=== PATIENT | male | born 1960 | race African-American/Black ===

== ENCOUNTER 2016-09-17 11:43 | Inpatient (IN) ==
[2016-09-17] MEDS ORDERED: DILTIAZEM 50 MG/10 ML VIAL IV STA ×2 (12:24→13:20)
[2016-09-17] MEDS ORDERED: DILTIAZEM 50 MG/10 ML VIAL IV ONE ×2 (12:31→14:35)
[2016-09-17 12:32] LABS: Basophils % 0.1 % (0.0-0.8); Hematocrit 34.4 VOL% (42.0-52.0); Hemoglobin 11.1 GM/DL (14.0-18.0); Immature Granulocytes % 1.2 %; Immature Granulocytes Absolute 0.12 #; Lymphocytes # 0.7 10*3/uL (1.4-4.0); Lymphocytes % 7.3 % (21.2-54.2); Mean Corpuscular HGB Conc 32.3 GM/DL (32-36); Mean Corpuscular Hemoglobin 27 PG (27-34); Mean Corpuscular Volume 84.3 FL (87-102); Mean Platelet Volume 10.3 FL (9.6-12.0); Monocytes # 0.6 10*3/uL (0.11-0.8); Monocytes % 6.5 % (1.7-12.7); NRBC # 0.02 10*3/uL; Neutrophils # 8.4 10*3/uL (1.4-7.4); Neutrophils % 84.9 % (38.7-73.9); Platelet Count 148 T/CUMM (130-400); Red Blood Count 4.08 MC/CUMM (3.8-5.5); Red Cell Distribution Width 17.3 % (9.3-17.3); White Blood Count 9.9 T/CUMM (4-12)
[2016-09-17] MEDS ORDERED: SODIUM CHLORIDE 0.9% 1,000 ML IV STA ×2 (12:36→13:19)
[2016-09-17] MEDS ORDERED: ACETAMINOPHEN 325 MG TABLET PO ONE (12:59)
[2016-09-17] MEDS ORDERED: ASPIRIN CHEW 81 MG TABLET PO STA (13:00)
[2016-09-17] MEDS ORDERED: ACETAMINOPHEN 325 MG TABLET ONE (13:01)
[2016-09-17] MEDS ORDERED: ASPIRIN 325 MG TABLET ONE (13:02)
[2016-09-17 13:13] LABS: Albumin 3.3 G/DL (3.4-5.0); Bilirubin,Total 1.2 MG/DL (0.2-1.0); Calcium 8.6 MG/DL (8.5-10.1); Osmolality,Calculated 276.8 MOS/KG (273-304); Total Protein 7.6 G/DL (6.4-8.3)
[2016-09-17 13:20] LABS: Troponin I Only 0.114 NG/ML (0.00-0.045)
[2016-09-17] MEDS ORDERED: ENOXAPARIN 120 MG/0.8 ML SYRINGE SUBCUT STA (13:24)
[2016-09-17] MEDS ORDERED: POTASSIUM CHLORIDE 20 MEQ TABLET PO STA (13:29)
--- NOTE | 2016-09-17 13:31 | Ultrasound Report ---
Exam: Right lower extremity venous Doppler/duplex ultrasound Comparison: None Clinical history: Right leg pain and swelling Technique: Duplex scan of the right lower extremity veins using th B- mode/grayscale imaging and Dopplers spectral analysis and color flow. Findings: There is normal compression and augmentation of the right common femoral, superficial femoral and popliteal veins. The proximal right greater saphenous veins appear to be patent. Major venous structures of the right lower extremity demonstrating normal course and caliber with normal color-flow study and spectral analysis. Impression: No evidence to suggest deep venous thrombosis within the right lower extremity. Enlarged 51 mm right groin node. Ultrasound images were captured and stored. PROCEDURE INTERPRETED AT [facility] ([facility] DEPARTMENT OF RADIOLOGY Final Report Signed by: Dr. Sarah Curran
--- NOTE | 2016-09-17 14:15 | Hospitalist History & Physical ---
<Louis Stricklandric - Last Filed: 09/17/16 14:07> Assessment and Plan - Time spent with patient Time spent with patient: Greater than 30 minutes History of Present Illness Chief complaint: SOB History of present illness: Mr. Morton is a 56 year old male with a history of hypertension and alcohol use who presented to the ED via EMS from [facility] in [place] for further evaluation of elevated cardiac enzymes and shortness of breath. On exam, the patient is noticeably uncomfortable, diaphoretic with rapid shallow breathing. The patient reports shortness of breath that has been progressively worsening over the last week, becoming unbearable on last night. The patient is a poor historian and doesn't seem to know very much about his own medical history. Most of the history has been collected from his mother who is at bedside, medical records, and preliminary diagnostic tests. He denies headache, chest pain, pain on inspiration, abdominal pain, N/V. He admits to drinking 1/5 of liquor "on the weekends" but denies smoking. EKG shows atrial fib/flutter with RVR and evidence of an old infact. Labs reveal WBC 9.9, Hgb 11.1, Hct 34.4, K 3.0, BUN 24, Cr 2.4, Trop 0.114. D-Dimer is negative. He is a full code. The patient will be admitted to the hospital medicine service for further evaluation and treatment. Home Medications Medication Instructions Recorded Confirmed Type Aspirin [Aspirin EC] 81 mg PO DAILY 09/17/16 09/17/16 History Lisinopril/Hctz 20-25 [Prinzide 1 tablet PO DAILY 09/17/16 09/17/16 History 20-25] Allergies Allergy/AdvReac Type Severity Reaction Status Date / Time No Known Allergies Allergy Unverified 09/17/16 11:51 Medical,Surgical,& Family Hx - Medical History Cardio: History of: Hypertension - Social History Smoking Status: Never smoker Frequency of Alcohol Use: Frequently Type of Drug Use: None Marital Status: Single Lives With:: Alone Functional capacity: independent ambulation - Constitutional Constitutional: Present: fatigue, weakness. Absent: excessive sweating - EENT Eyes: Absent: blurry vision, loss of vision - Cardiovascular Cardiovascular: Present: dyspnea, dyspnea on exertion - Respiratory Respiratory: Present: dyspnea. Absent: cough - Gastrointestinal Gastrointestinal: Absent: abdominal pain - Genitourinary Genitourinary: Absent: difficulty urinating, dysuria - Musculoskeletal Musculoskeletal: Absent: arthralgias, back pain - Neurological Neurological: Absent: abnormal gait, abnormal speech - Psychiatric Psychiatric: Absent: anxiety, depression - Endocrine Endocrine: Absent: cold intolerance, fatigue, heat intolerance - Hematologic/Lymphatic Hematologic/Lymphatic: Absent: easy bleeding, easy bruising Exam - Constitutional Exam: General appearance: morbid obesity, moderate distress, diaphoretic - Head Head exam: Present: normocephalic, atraumatic - Eye Eye exam: Present: EOMI. Absent: conjunctival injection, nystagmus Pupils: Present: VIKASH, normal accommodation - ENT ENT exam: Present: normal exam, normal external ear exam - Neck Neck exam: Present: normal inspection. Absent: lymphadenopathy, tenderness, thyromegaly - Respiratory Respiratory exam: Present: clear to auscultation bilaterally. Absent: rales, rhonchi, wheezes - Cardiovascular Cardiovascular exam: Present: irregular, tachycardia. Absent: carotid bruit, gallop, rubs - GI/Abdominal GI/Abdominal exam: Present: normal bowel sounds. Absent: ascites, distended, mass - Extremities Exam Extremities exam: Present: edema, venous stasis. - Back Exam Back exam: Absent: CVA tenderness (L), CVA tenderness (R) - Neurological Exam Neurological exam: Present: alert, oriented X3 - Psychiatric Psychiatric exam: Present: normal affect, normal mood - Skin Skin exam: Present: normal color, warm, moist Results - Labs CBC & BMP: 09/17/16 12:18 09/17/16 12:18 Lab Results: I have reviewed the past 24 hour labs - EKG EKG results: interpreted by SUNNY EKG shows: atrial fibrillation - Impressions 1. Atrial fibrillation with RVR: Uncontrolled. Patient receiving Cardizem drip in the ER. We will continue to monitor. Consult cardiology as needed 2. Dyspnea: Rapid shallow breathing on exam. Decreased lung sounds. Chest x- ray reveals improving CHF with residual small pleural effusion. Minimal atelectasis at lung bases. Continue O2 per nasal cannula. Lasix. Consider antibiotics for possible pneumonia coverage. 3. Acute renal failure: BUN 24 creatinine 2.4. Patient apparently takes lisinopril. Gentle IV fluids. Consult nephrology as necessary. - Diagnostic Findings Procedure: Chest x-ray: image reviewed by me, report reviewed by me (improving CH fwith small left pleural effusion. minimal atelectasis) <Susanne Cormier - Last Filed: 09/17/16 15:08> Assessment and Plan - Time spent with patient Time spent with patient: Less than 30 minutes History of Present Illness History of present illness: Mr. Morton is a 56 year old male Results - Labs CBC & BMP: 09/17/16 12:18 09/17/16 12:18
[2016-09-17 14:26] LABS: Band Neutrophils 4 % (0-10); Lymphocytes 5 % (20-55); Segmented Neutrophils 87 % (50-85); Total Cells Counted 100
[2016-09-17] MEDS ORDERED: ONDANSETRON 4 MG/2 ML VIAL IV PRN (14:26)
[2016-09-17] MEDS ORDERED: ACETAMINOPHEN 325 MG TABLET PO PRN (14:26)
[2016-09-17] MEDS ORDERED: DOCUSATE SODIUM 100 MG CAPSULE PO PRN (14:26)
[2016-09-17] MEDS ORDERED: MORPHINE 2 MG/1 ML SYRINGE IV PRN (14:26)
[2016-09-17] MEDS ORDERED: LACTULOSE 20 GM/30 ML UDCUP PO PRN (14:26)
[2016-09-17] MEDS ORDERED: ZALEPLON 5 MG CAPSULE PO PRN (14:26)
[2016-09-17 14:27] LABS: Hypochromasia Slight; Platelet Estimate Adequate
[2016-09-17 14:28] LABS: Poikilocytosis Slight; Tear Drop Cells Few
--- NOTE | 2016-09-17 14:31 | XRay Report ---
Portable chest Date: 09/17/2016 Clinical history: Shortness of breath Comparison: 09/17/2016 Technique: Portable AP sitting chest Findings: The heart is minimally enlarged with uncoiling of the aorta. Decreased perihilar parenchymal findings extending to the lung bases. Small left pleural effusion. Stable mediastinum with degenerative changes. Impression: Improving CHF with residual small left pleural effusion. Minimal atelectasis at the lung bases. PROCEDURE INTERPRETED AT [facility] DEPARTMENT OF RADIOLOGY Final Report Signed by: Dr. Sarah Curran
[2016-09-17] MEDS ORDERED: ENOXAPARIN 120 MG/0.8 ML SYRINGE SUBCUT ONE (14:34)
[2016-09-17] MEDS ORDERED: POTASSIUM CHLORIDE 20 MEQ TABLET PO ONE (14:35)
--- NOTE | 2016-09-17 14:37 | Emergency Department Note ---
Toro Collins Brittany, am scribing for, and in the presence of, Moises Figueroa M.D. 12:28. Henry Collins Howard T, M.D., personally performed the services described in this documentation, ascribed by Ewa Engel in my presence, and it is both accurate and complete 232 . Arrival - Arrival Chief Complaint: Shortness of Breath Stated Complaint: transfer sob ED Nursing Triage Note: sob for one day. transferred from [facility] for further evaluationof elevated cardiac enzymes. Mode of Arrival: Stretcher Limitations: No Limitations Source: Patient, Family, RN Notes Reviewed - History of Present Illness HPI Narrative: Patient is a 56 y/o black male presenting to the ED by EMS from [place], [place] for further evaluation of Elevated Cardiac Enzymes. Patient reports that he has been having some shortness of breath that has been chronic for over a year now, worsening today. Family reports that patient cannot walk even a short distance without getting extremely short of breath. Patient has no history of diagnosis of Pulmonary problems. Patient notes that he has had some severe diarrhea and chills. Family reports that patient never gets chilled and this is unlike him. Family notes that patient has had some swelling of the bilateral lower extremities occurring intermittently for a year, right greater than left. Patient admits to frequent use of ETOH, but denies any use of smoking tobacco. No other complaint/pain in the ED at this time. Allergies/Adverse Reactions: Allergies Allergy/AdvReac Type Severity Reaction Status Date / Time No Known Allergies Allergy Unverified 09/17/16 11:51 Home Medications: Home Medications Medication Instructions Recorded Confirmed Type Aspirin [Aspirin EC] 81 mg PO DAILY 09/17/16 09/17/16 History Lisinopril/Hctz 20-25 [Prinzide 1 tablet PO DAILY 09/17/16 09/17/16 History 20-25] Review of System - Review of System 12 point system: reviewed and no additional remarkable complaints except as stated - Review of System Constitutional: Absent: chills, fever Eyes: Absent: vision change Head/Ears/Nose/Throat: Absent: nasal drainage, sore throat Respiratory: Present: respiratory distress Cardiovascular: Present: edema. Absent: chest pain Gastrointestinal: Present: nausea, diarrhea. Absent: abdominal pain, vomiting Genitourinary male: Absent: urgency, dysuria, frequency Musculoskeletal: Absent: arm pain, back pain, leg pain, neck pain Skin: Absent: rash Neurological: Absent: headache Psychiatric: Absent: anxiety, depression Hematological/Lymphatic: Absent: easy bleeding, easy bruising Medical,Surgical,& Family Hx - Medical History Cardio: History of: Hypertension - Social History Smoking Status: Never smoker Exam Vital Signs: Vital Signs Temperature 101.1 F H 09/17/16 12:15 Pulse Rate 108 H 09/17/16 12:46 Respiratory Rate 20 09/17/16 12:46 Blood Pressure 136/72 09/17/16 12:46 O2 Sat by Pulse Oximetry 97 09/17/16 12:46 - General General appearance: alert, in distress (patient appears to be mildly dyspneic) - Head Head exam: Present: atraumatic, normocephalic, normal inspection - Eye Eye exam: Present: normal appearance, PERRL, EOMI - ENT ENT exam: Present: normal exam, normal oropharynx, mucous membranes moist - Neck Neck exam: Present: normal inspection, full ROM, trachea midline - Chest Chest inspection: Present: normal inspection, symmetric chest wall rise - Respiratory Respiratory exam: Present: respiratory distress (mild respiratory distress), other (dyspneic). Absent: normal lung sounds bilaterally (patient has expiratory sounds) - Cardiovascular Cardiovascular exam: Present: normal rhythm, tachycardia, normal heart sounds. Absent: regular rate - Abdominal Exam Abdominal exam: Present: soft, normal bowel sounds. Absent: distention, tenderness - Extremities Exam Extremities exam: Present: full ROM. Absent: normal inspection (swelling to bilateral lower extremities right greater than left; RLE warm to touch), tenderness - Back Exam Back exam: Present: normal inspection - Neurological Exam Neurological exam: Present: alert, oriented X3, CN II-XII intact. Absent: motor sensory deficit - Psychiatric Psychiatric exam: Present: normal affect - Skin Skin exam: Present: warm, dry Course Course Narrative: Medical decision making: Precise etiology of all signs and symptoms unclear, fever A. fib dyspnea elevated d-dimer, differential includes and STEMI, PE, or unspecified infectious process. Hospice will evaluate for continued testing and treatment. CT chest deferred because elevated creatinine. IV fluids multiple boluses in ER given. Cardizem given, initially responded first dose then rapid ventricular response recurred so additional dose given. Diarrhea and possible dehydration so continued IV fluids. Fever and dyspnea treated Tylenol aspirin. Bilingual Operator briefly reviewed EKGs did not recommend treatment as STEMI. Lovenox given for possible PE or non-STEMI. Results - Labs CBC & BMP: 09/17/16 12:18 09/17/16 12:18 Lab Results: I have reviewed the patients labs Labs: Laboratory Tests 09/17/16 12:18 WBC 9.9 RBC 4.08 Hgb 11.1 L Hct 34.4 L MCV 84.3 L MCH 27 MCHC 32.3 RDW 17.3 Plt Count 148 MPV 10.3 Neut % (Auto) 84.9 H Lymph % (Auto) 7.3 L [place] % (Auto) 6.5 Eos % (Auto) 0.0 Baso % (Auto) 0.1 Neut # (Auto) 8.4 H Lymph # (Auto) 0.7 L [place] # (Auto) 0.6 Eos # (Auto) 0.0 Baso # (Auto) 0.0 Immature Gran % 1.2 Nucleated RBC % 0.2 Immature Gran # 0.12 Nucleated RBCs # 0.02 Laboratory Tests 09/17/16 12:18 D-Dimer, Quantitative 2.2 Laboratory Tests 09/17/16 12:18 Sodium 137 Potassium 3.0 L Chloride 102 Carbon Dioxide 23 Anion Gap 15.0 BUN 24 H Creatinine 2.40 H GFR Calculation 55 BUN/Creatinine Ratio 10.00 Glucose 105 Calculated Osmolality 276.8 Calcium 8.6 Total Bilirubin 1.20 H AST 73 H ALT 31 Alkaline Phosphatase 34 L Troponin I 0.114 H Total Protein 7.6 Albumin 3.3 L Globulin 4.3 H Albumin/Globulin Ratio 0.7 L Amylase 21 L Lipase 70.0 L - EKG EKG results: interpreted by ERMD (afib or flutter, no def STEMI, Rate 140s) - Diagnostic Findings Procedure: Chest x-ray: report reviewed by me (no acute; see report), Ultrasound : report reviewed by me (Venous Doppler: No evidence to suggest deep venous thrombosis within the right lower extremity. Enlarged 51 mm right groin node.) Disposition Clinical Impression: Dyspnea, Fever, Elevated troponin I level, Afib, Atrial fibrillation with RVR Case discussed with: patient Disposition: Disch/Xfer-Ipshort Term Hos Condition: Guarded Time of Disposition: 14:36
[2016-09-17 14:50] LABS: ABG Base Excess -3.5 MMOL/L (-2.5-2.5); ABG HCO3 21.5 MMOL/L (20-26); ABG Oxygen Saturation 97.5 % (95-100); ABG PCO2 26.9 MM HG (35-48); ABG PH 7.461 (7.35-7.45); ABG PO2 95.5 MM HG (80-95); ABG TCO2 17.2 MMOL/L (23-27)
[2016-09-17 14:53] LABS: Risk Ratio 1.77; VLDL CHOLESTEROL 13.4 MG/DL
[2016-09-17 14:54] LABS: Magnesium 1.2 MG/DL (1.8-2.4); Phosphorous 1.5 MG/DL (2.5-4.9)
[2016-09-17] MEDS ORDERED: SODIUM CHLORIDE 0.9% 1,000 ML IV SCH (15:30)
[2016-09-17 15:35] LABS: Free T4 (Free Thyroxine) 1.1 NG/DL (0.76-1.46); Thyroid Stimulating Hormone 1.09 uIU/ml (0.358-3.74)
[2016-09-17] MEDS ORDERED: POTASSIUM CHLORIDE 20 MEQ TABLET PO PRN (17:30)
[2016-09-17] MEDS ORDERED: MAGNESIUM SULF RIDER 4 GM in PREMIX 1 EACH IV PRN (17:31)
[2016-09-17] MEDS ORDERED: MAGNESIUM SULF RIDER 2 GM in PREMIX 1 EACH IV PRN (17:31)
[2016-09-17] MEDS: ENOXAPARIN 30 MG/0.3 ML SYRINGE SUBCUT SCH (17:35)
[2016-09-17] MEDS: DILTIAZEM 30 MG TABLET PO SCH (22:26)
[2016-09-17] MEDS ORDERED: EPINEPHrine 1 MG/ML VIAL ONE (22:39)
[2016-09-17] MEDS ORDERED: CALCIUM CHLORIDE 1,000 MG/10 ML SYRINGE IV ONE (22:39)
[2016-09-17] MEDS ORDERED: AMIODARONE 150 MG/3 ML VIAL ONE (22:39)
[2016-09-17] MEDS ORDERED: SODIUM BICARBONATE 50 MEQ/50 ML VIAL IV ONE (22:39)
[2016-09-17] MEDS ORDERED: MAGNESIUM SULFATE 1 GM/2 ML VIAL ONE (22:39)
[2016-09-18] MEDS ORDERED: DILTIAZEM 30 MG TABLET PO SCH (09:00)
--- NOTE | 2016-09-18 09:07 | Hospitalist Progress Note ---
Assessment and Plan (1) Atrial fibrillation with RVR Status: Acute Assessment and plan: Impression: 1. Atrial fibrillation with rapid ventricular rate and elevated troponin. 2. Possible acute kidney injury. 3. Hypertension 4. Diarrhea and fever Plan: Cardiology consultation was mentioned in the note from yesterday, so I will ask them for their opinion. Continue volume resuscitation. Resume diltiazem for rate and blood pressure control. Follow kidney function. Stool studies. This note was completed using [facility] voice recognition software. There may be manager transfusion errors as a result. Current Visit: Yes Hospitalist: Subjective Interval history: The patient was referred from an outside hospital yesterday for evaluation of tachycardia. His only complaint at the time of transfer was diarrhea for about 24 hours and some chills. He reported 8 or 10 loose stools over the prior 24 hours. He has no history of any antibiotic use for the past month or so, but apparently did have an upper respiratory infection about 2 weeks ago. He denies taking any antibiotics for that. When he presented to his local hospital for evaluation of the diarrhea and chills, he was found to be tachycardic and had an elevated troponin. He was referred for evaluation of that. EKG here showed what appears to be atrial fibrillation with a ventricular rate of about 140. The patient reports a history of hypertension, but denies any prior history of heart disease. He specifically reports no history of myocardial infarction or congestive heart failure. He also reports no prior history of kidney disease or diabetes. He was given some diltiazem with initial good rate control, but this is currently not hanging. Alcohol history as noted in the history and physical. He denies any smoking. Exam - Constitutional Vitals: Period Temp Pulse Resp BP Sys/Carbone Pulse Ox Last 24 Hr 97 F-100.9 F 104-135 20-27 102-163/58-110 96-100 He is a morbidly obese black man. He is sitting in a chair at the bedside. Heart appears regular and rapid, with distant tones and no murmur. He has a few scattered rales in the chest, but the lungs are mostly clear. Abdomen is obese and soft. There is no tenderness. He has no significant peripheral edema. Results - Labs CBC & BMP: 09/17/16 12:18 09/17/16 12:18 Lab Results: I have reviewed the past 24 hour labs (Creatinine is elevated. EKG as described above.)
[2016-09-18] MEDS: DILTIAZEM 30 MG TABLET PO SCH (09:17)
[2016-09-18] MEDS: PANTOPRAZOLE 40 MG TABLET PO SCH (09:17)
[2016-09-18] MEDS ORDERED: DILTIAZEM 100 MG VIAL.ADD IV ONE (10:20)
[2016-09-18] MEDS ORDERED: DILTIAZEM INJ 100 MG in SODIUM CHLORIDE 0.9% 100 ML IV SCH (10:30)
--- NOTE | 2016-09-18 10:31 | EKG Report ---
Stationary ECG Study [facility] Test Date: 09/18/2016 10:31:30 AM Pat Name: ELMO BEE Department: Room: 281 Gender: M Front Desk Specialist: SMILEY : 1960 Requested by: Lisa Tello Order Number: [id number] Reading MD: TU MURO Intervals [place] Rate: 134 P: 999 MI: 0 QRS: 257 QRSD: 119 T: 94 QT: 295 QTc: 374 Interpretive Statements ATRIAL FLUTTER/TACHYCARDIA WITH RAPID VENTRICULAR RESPONSE POSSIBLE RIGHT VENTRICULAR HYPERTROPHY INFERIOR MYOCARDIAL INFARCTION, PROBABLY OLD ANTEROLATERAL MYOCARDIAL INFARCTION, OF INDETERMINATE AGE Electronically Signed On 09-20-16 12:41:35 CDT by TU MURO [email or web address]
[2016-09-18] MEDS ORDERED: SODIUM CHLORIDE 0.9% IV SCH (11:00)
[2016-09-18] MEDS ORDERED: DILTIAZEM IV SCH (11:00)
[2016-09-18] MEDS ORDERED: DILTIAZEM INJ 125 MG in SODIUM CHLORIDE 0.9% 100 ML IV SCH (11:00)
[2016-09-18] MEDS ORDERED: DILTIAZEM 25 MG/5 ML VIAL IV ONE (11:30)
[2016-09-18] MEDS ORDERED: POTASSIUM CHLORIDE RIDER 10 MEQ in PREMIX 1 EACH IV PRN (11:37)
--- NOTE | 2016-09-18 12:00 | Cardiology Consult Note ---
<Linnea Guzmán - Last Filed: 09/18/16 14:34> Assessment and Plan - Time spent with patient Time spent with patient: Greater than 30 minutes (1) Atrial flutter Status: Acute Assessment and plan: Atrial flutter with rapid ventricular response. This appears to be a new diagnosis. -Continue Cardizem drip -Add Coreg 6.25 mg p.o. twice daily -Will consider adding Eliquis for stroke prevention. Current Visit: Yes (2) Elevated troponin I level Status: Acute Assessment and plan: This is most likely secondary to patient's atrial flutter with rapid ventricular response. This is also in the setting of an elevated creatinine of 2.4. Patient denies chest pain, heaviness and tightness. We will continue to monitor cardiac biomarkers and EKG. Underlying coronary artery disease also needs to be ruled out. Patient will need left heart catheterization once dyspnea and rapid heart rate improves. Current Visit: Yes (3) Dyspnea on exertion Status: Acute Assessment and plan: Likely secondary to heart failure. BNP is mildly elevated at 275. Underlying coronary artery disease also need to be ruled out. Patient will need left heart catheterization once dyspnea and rapid heart rate improves. -Echocardiogram -Lasix 40 mg IV twice daily. Monitor BMP daily. Current Visit: Yes (4) Orthopnea Status: Chronic Assessment and plan: Patient confirms orthopnea 4-5 years. I have ordered Lasix 40 mg twice daily. I have also added echocardiogram. Current Visit: Yes (5) Hypertension Status: Chronic Assessment and plan: This is suboptimally controlled. Coreg 6.25 mg p.o. twice daily added. We will continue to adjust medications as needed. 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 Morton is a 56 year old male without known history of coronary artery disease, not routinely followed by cardiology. Patient was transferred to [facility] for further evaluation of elevated troponin. Patient has cardiac risk factors significant for hypertension, obesity, sedentary lifestyle and former smoker (quit 3 years ago). Patient denies history of diabetes, hyperlipidemia and atrial fibrillation/flutter. Patient denies any prior history of cardiac workup. He has never undergone heart catheterization or cardiac stress testing. Patient was transferred from [facility] in [facility] for elevated troponin, 0.06. When he arrived to [facility] he was noted to be in atrial flutter with rapid ventricular response. Heart rate of 142 noted. This appears to be a new onset. Patient denies any prior history of an irregular heart rhythm. Patient confirms shortness of breath since Sunday. He tells me that this progressively worsened and yesterday he decided it was time to have this worked up further. Patient also confirms orthopnea 4-5 years (reports that he sleeps on multiple pillows at night), lower extremity swelling, dyspnea on exertion and easy fatigability. Patient's mother is at bedside and she reports that he has very poor exercise intolerance. He can only walk very short distances without having to stop for rest break. He denies chest pain, heaviness and tightness. He also denies heart palpitations and heart racing. He reports that he cannot tell that he is in an irregular heart rhythm. He is currently on Cardizem drip. Patient has been admitted under the hospitalist's service and housed on the telemetry floor. Cardiology has been consulted to further assist in patient's atrial flutter. Patient was seen and examined on the telemetry floor. Patient denies chest pain , heaviness and tightness. He remains in atrial flutter, heart rate is trending down after initiation of Cardizem drip. He continues to be dyspneic and tachypneic and in mild respiratory distress. Troponin remains slightly elevated (0.114, 0.407 and 0.519). However, this is in the setting of an elevated creatinine of 2.4. D-dimer is also been elevated at 2.2. VQ lung scan has been ordered. Venous Doppler of bilateral lower extremity was negative for DVT. Chest x-ray reveals minimally enlarged heart with small left pleural effusion. Patient reports that he has no prior history of heart failure. I have ordered an echocardiogram. BNP is mildly elevated at 275. I will add Lasix at this time. Patient patient remains in atrial flutter with heart rate of 23 noted. TSH is noted to be in normal limits. Potassium is 3.0 this is been replaced per protocol. Magnesium 1.2, this is also been replaced per protocol. We will continue with Cardizem drip at this time. Patient will most likely need further invasive workup during his hospital stay. He will most likely benefit from left heart catheterization to rule out underlying coronary artery disease. This can be done once patient's dyspnea and rapid heart rate resolved. I will discuss this further with Dr. Ludwig. Further plan and addendum to follow per Dr. Ludwig. CC: Derrick Branch MD - Home Medications and Allergies Home Medications: Home Medications Medication Instructions Recorded Confirmed Type Aspirin [Aspirin EC] 81 mg PO DAILY 09/17/16 09/17/16 History Lisinopril/Hctz 20-25 [Prinzide 1 tablet PO DAILY 09/17/16 09/17/16 History 20-25] Allergies/Adverse Reactions: Allergies Allergy/AdvReac Type Severity Reaction Status Date / Time No Known Allergies Allergy Unverified 09/17/16 11:51 - Constitutional Constitutional: Present: daytime sleepiness, fatigue, weight gain. Absent: chills, excessive sweating, fever(s), frequent falls, headache(s), weakness, weight loss - Cardiovascular Cardiovascular: Present: dyspnea, dyspnea on exertion, edema, orthopnea, PND. Absent: chest pain at rest, chest pain with activity, claudication, diaphoresis , radiating jaw, neck or arm pain, lightheadedness, palpitations - Respiratory Respiratory: Present: dyspnea, dyspnea on exertion, wheezing, snoring. Absent: cough, pain on inspiration, change in phlegm color - Gastrointestinal Gastrointestinal: Absent: abdominal pain, change in bowel habits, coffee ground emesis, constipation, cramping, diarrhea, heartburn, hematemesis, hematochezia, loose stools, nausea, vomiting - Neurological Neurological: Absent: dizziness, syncope - Hematologic/Lymphatic Hematologic/Lymphatic: Absent: easy bleeding, easy bruising, lymphadenopathy Medical,Surgical,& Family Hx - Medical History Cardio: History of: Hypertension No history of: CAD Endocrine: No history of: Diabetes Mellitus (IDDM), Diabetes Mellitus (NIDDM), Dyslipidemia Other: History of: Miscellaneous Medical Problems (Obesity) - Surgical History Cardiac Surgeries: Patient Denies: Cardiac Catheterization - Family History Family History: Denies;: Family Heart Disease - Social History Smoking Status: Former smoker (Quit 3 years ago) Frequency of Alcohol Use: Frequently Type of Drug Use: None Physical Examination Vital Signs Pulse Resp BP Pulse Ox 96 H 32 H 116/74 96 09/17/16 11:43 09/17/16 11:43 09/17/16 11:43 09/17/16 11:43 General: Present: Appears Well, No Apparent Distress HEENT: Present: Normocephaly Neck: Present: Supple Neck, Midline Trachea Cardiac: Present: Irregularly Regular, Tachycardia. Absent: Gallop Lungs: Present: Bibasilar Rales (Minimal), Oxygen, Other (Tachypnea and dyspneic ) Abdomen: Present: Soft, Active Bowel Sounds, Non-Tender, Other (Obese) Skin: Present: Other (Dry skin to bilateral lower extremities) Extremities: Present: No Clubbing, No Cyanosis, No Edema, Normal Upper Extr. Pulses, Normal Lower Extr. Pulses Result/EKG - Labs CBC & BMP: 09/17/16 12:18 09/17/16 12:18 Lab Results: I have reviewed the past 24 hour labs Labs: Laboratory Results - last 24 hr 09/17/16 09/17/16 09/17/16 14:29 15:16 21:28 ABG pH 7.461 H ABG pCO2 26.9 L ABG pO2 95.5 H ABG HCO3 21.5 ABG Total CO2 17.2 L ABG O2 Saturation 97.5 ABG Base Excess -3.5 L Lactic Acid 3.9 H Troponin I 0.407 H D 09/18/16 00:51 ABG pH ABG pCO2 ABG pO2 ABG HCO3 ABG Total CO2 ABG O2 Saturation ABG Base Excess Lactic Acid Troponin I 0.519 H D <Maxwell Ludwig - Last Filed: 09/18/16 16:29> History of Present Illness - Consult Narrative History of present illness: Patient's chart reviewed, the patient himself was interviewed and examined. Discussed the case and chart with Linnea Guzmán NP. Mr. Morton is a 56 year old male who states she's been having edema for over a year but not evaluated. He's had no ECGs in quite some time. As noted he was transferred here with atrial flutter with rapid ventricular response. He initially slowed with some medications but still fast. He has not noted any palpitations. His biggest complaint was that of shortness of breath. He denies any chest pain or angina or anginal equivalent. His troponin was minimally elevated and his BNP was mildly moderately elevated at 275. His chest x-ray acid looks normal. His creatinine is slightly elevated at 2.4 BUN of 24 and. His potassium 3.0. Magnesium is 1.2. The patient on protocol replacements. His VQ lung scan was normal with low probability for pulmonary emboli. His echocardiogram is pending. Patient examined and his examination is as noted. I think at this time we will add amiodarone to his regimen IV and await his echocardiogram. Certainly he may need SHANTI and cardioversion. It does appear though he was in sinus tachycardia on arrival to the outside facility. CC: Derrick Branch MD Physical Examination Vital Signs Pulse Resp BP Pulse Ox 96 H 32 H 116/74 96 09/17/16 11:43 09/17/16 11:43 09/17/16 11:43 09/17/16 11:43 Result/EKG - Labs CBC & BMP: 09/17/16 12:18 09/17/16 12:18 Labs: Laboratory Results - last 24 hr 09/17/16 09/18/16 21:28 00:51 Troponin I 0.407 H D 0.519 H D
--- NOTE | 2016-09-18 14:21 | Nuclear Medicine Report ---
Nuclear medicine ventilation/perfusion scan Indication: Shortness of breath Findings: Ventilation scan: The patient received 40.0 mCi of 90 9M technetium DTPA aerosolized. There is normal distribution of radiotracer in both lungs. Perfusion scan: Patient received 5.0 mCi of 90 9M technetium MAA intravenously. There is normal in distribution of radiotracer in both lungs without evidence of segmental or greater defects. Impression: Normal nuclear medicine ventilation perfusion scan. This indicates low probability for pulmonary embolism. PROCEDURE INTERPRETED AT [facility] DEPARTMENT OF RADIOLOGY Final Report Signed by: Dr. David Duckworth
--- NOTE | 2016-09-18 14:37 | XRay Report ---
XR chest post lung scan Indication: Shortness of breath Comparison: 17 September 2016 Findings: The heart and mediastinum are normal in size and configuration. The pulmonary vascularity is normal in caliber. No lung infiltrates, effusions, pneumothorax or other abnormality is demonstrated. Impression: Normal chest x-ray PROCEDURE INTERPRETED AT [facility] DEPARTMENT OF RADIOLOGY Final Report Signed by: Dr. David Duckworth
[2016-09-18] MEDS: ENOXAPARIN 30 MG/0.3 ML SYRINGE SUBCUT SCH (14:42)
[2016-09-18] MEDS: CARVEDILOL 6.25 MG TABLET PO SCH ×2 (14:42→21:56)
[2016-09-18] MEDS: FUROSEMIDE 40 MG/4 ML VIAL IV SCH (16:43)
[2016-09-18] MEDS ORDERED: AMIODARONE INJ 150 MG in DEXTROSE 5% 100 ML IV ONE (17:00)
[2016-09-18] MEDS ORDERED: AMIODARONE INJ 450 MG in DEXTROSE 5% 241 ML IV SCH ×2 (17:00→23:00)
[2016-09-18 19:11] LABS: Apearance,Urine CLOUDY (Clear); Bacteria,Urine Few /HPF (Few); Bilirubin,Urine Negative (Negative); Blood, Urine Large mg/dL (Negative); Glucose,Urine (UA) Negative (Negative); Ketones,Urine 5 mg/dL (Negative); Nitrite,Urine Negative (Negative); Protein,Urine 100 MG/DL; RBC,Urine 13 /HPF (0-4); Squamous Epithelial Cell,Urine Occasional /HPF (0-10); Urine Color Red (Yellow); Urine Specific Gravity 1.016 (1.001-1.035); Urine Urobilinogen < 2.0 EU/DL (0.2-1.0); WBC,Urine 33 /HPF (0-6)
--- NOTE | 2016-09-18 21:07 | ECHO Report ---
Praveen, Yusuf Exam Date: 09/18/2016 10:52 Referring Physician: Technologist: Diane Abel Age: 56 Ht (in): 76 Wt (lb): 360 Gender: M Exam Location: [facility] Echo Indications: dyspnea, fever, elevated troponin, A fib BP: 163 / 92 HR: 133 Rhythm: tachycardia Technical Quality: Very technically difficult study IMPRESSIONS 1. The patient is severely tachycardic and the patient's visualization so poor that I cannot really make an adequate interpretational report on this study. 2. The left ventricle at best appears to be normal size the upper limits normal size. It is difficult to make any accurate determination of ejection fraction. 3. The right ventricle appears to be normal size. 4. Otherwise I can make no further comment on this study because of his poor quality and limited visualization. MEASUREMENTS (Male / Female) Normal Values 2D ECHO LV Diastolic Diameter PLAX 4.2 cm 4.2 - 5.9 / 3.9 - 5.3 cm LV Systolic Diameter PLAX 3.1 cm LV Fractional Shortening PLAX 26.2 % IVS Diastolic Thickness 2.5 cm 0.6 - 1.0 / 0.6 - 0.9 cm LVPW Diastolic Thickness 1.6 cm 0.6 - 1.0 / 0.6 - 0.9 cm RV Internal Dim ED PLAX 2.6 cm Aortic Root Diameter 3.1 cm LA Systolic Diameter LX 4.5 cm 3.0 - 4.0 / 2.7 - 3.8 cm DOPPLER TR Peak Velocity 147.0 cm/s TR Peak Gradient 8.6 mmHg FINDINGS Left Ventricle See above. Right Ventricle Normal right ventricular size. Right Atrium Not actively visualized. Left Atrium Not adequately visualized. Mitral Valve Not adequately seen due tocomment on Aortic Valve Not adequately seen to comment on Tricuspid Valve Not adequately visualized to comment on. Pulmonic Valve Pulmonic valve not well visualized. Pericardium No pericardial effusion. Aorta Normal size aortic root and proximal ascending aorta. Maxwell Ludwig MD (Electronically Signed) Final Date: 18 September 2016 21:06
--- NOTE | 2016-09-18 23:25 | Event Note ---
Patient coded: ACLS was initiated even for that there. Reportedly this patient admitted to the hospital for the atrial fib with RVR. Was going on oral Cardizem throughout the day of informed. The patient obviously went into asystole and subsequently developed a ventricular fibrillation. Opiate intervention was done patient was able to be brought back to spontaneous heartbeat with atrial fibrillation rate below 100 is refer to the full report of the ACLS. That intubated in the process is now on CMV rate of 12 tidal volume of 700 and 100% blood gas is pending. All labs have been sent. Please refer to the orders initiated tonight on this patient for the workup details. Concerns include: 1. pulmonary embolus 2. Myocardial infarction 3. Electrolyte abnormalities 4. Miscellaneous because of Patient is now in need intensive care unit room #119 I will respond and act on the outcome of the lab test done.
[2016-09-18] MEDS ORDERED: ATROPINE 1 MG/10 ML SYRINGE IV ONE (23:28)
[2016-09-18] MEDS ORDERED: SODIUM CHLORIDE 0.9% 1,000 ML IV ONE (23:30)
[2016-09-18 23:31] LABS: ABG Base Excess -23.5 MMOL/L (-2.5-2.5); ABG HCO3 8.2 MMOL/L (20-26); ABG PCO2 30.3 MM HG (35-48); ABG TCO2 7.2 MMOL/L (23-27)
[2016-09-18] MEDS: DOPamine 800 MG/250 ML PREMIX IV SCH (23:31)
[2016-09-18 23:33] LABS: ABG PH 6.999 (7.35-7.45)
[2016-09-18] MEDS ORDERED: SODIUM BICARBONATE 50 MEQ/50 ML SYRINGE IV ONE (23:35)
[2016-09-18] MEDS: NOREPINEPHRINE 8 MG in SODIUM CHLORIDE 0.9% 242 ML IV SCH (23:37)
[2016-09-18 23:38] LABS: Basophils # 0.1 10*3/uL (0.0-0.2); Basophils % 0.3 % (0.0-0.8); Eosinophils % 0.2 % (0.00-10.9); Hematocrit 36.5 VOL% (42.0-52.0); Hemoglobin 10.9 GM/DL (14.0-18.0); Immature Granulocytes % 1.4 %; Immature Granulocytes Absolute 0.28 #; Lymphocytes # 4.1 10*3/uL (1.4-4.0); Lymphocytes % 20.7 % (21.2-54.2); Mean Corpuscular HGB Conc 29.9 GM/DL (32-36); Mean Corpuscular Hemoglobin 27 PG (27-34); Mean Corpuscular Volume 90.6 FL (87-102); Mean Platelet Volume 11.5 FL (9.6-12.0); NRBC # 0.06 10*3/uL; Neutrophils # 13.2 10*3/uL (1.4-7.4); Neutrophils % 67.4 % (38.7-73.9); Platelet Count 124 T/CUMM (130-400); Red Blood Count 4.03 MC/CUMM (3.8-5.5); Red Cell Distribution Width 17.7 % (9.3-17.3); White Blood Count 19.6 T/CUMM (4-12)
[2016-09-19 00:08] LABS: Free T4 (Free Thyroxine) 0.87 NG/DL (0.76-1.46); Thyroid Stimulating Hormone 2.99 uIU/ml (0.358-3.74)
[2016-09-19 00:10] LABS: Albumin 2.9 G/DL (3.4-5.0); Bilirubin,Total 0.6 MG/DL (0.2-1.0); Calcium 10.1 MG/DL (8.5-10.1); Potassium 4.4 MMOL/L (3.5-5.1); Total Protein 7.2 G/DL (6.4-8.3)
[2016-09-19] MEDS ORDERED: SODIUM CHLORIDE 0.9% 1,000 ML IV SCH (00:55)
[2016-09-19 01:34] LABS: PT Patient Result 10.9 SECS; Partial Thromboplastin Time 38.7 SECS (0-40)
[2016-09-19] MEDS: HEPARIN DRIP 25,000 UNITS/500 ML PREMIX IV SCH ×2 (02:11→12:33)
[2016-09-19] MEDS: DOPamine 800 MG/250 ML PREMIX IV SCH ×7 (02:17→23:49)
--- NOTE | 2016-09-19 02:27 | Event Note ---
Late note/ER note/code note/procedure note: Called to the floor and telemetry for a CODE BLUE patient was found to be in asystole not breathing ACLS protocol already started. The hospitalist was at the bedside running the code. I assisted in providing airway support and IV access. I briefly took over the code and intubated the patient using a 7.5 ET tube was successful first attempt watching the tube passed through the vocal cords without difficulty there is condensation in the tube good airway sounds over the chest field and CO2 color change breath sounds heard in both lung velasquez. X-ray confirmed ET tube placement. #2 procedure was a central line placed in the right femoral vein successfully first attempt triple-lumen all 3 lines were flushed good blood return no complications patient tolerated procedure well. Also give several rounds of high-dose epi to the patient with bicarb magnesium and calcium chloride several rounds of shock and for V. tach and V. fib a pulse was regained patient was stabilized and transferred to the ICU under the hospitalist care at this point patient is in critical condition
[2016-09-19] MEDS: MEROPENEM 500 MG in SODIUM CHLORIDE 0.9% 100 ML IV SCH ×2 (02:45→15:12)
[2016-09-19] MEDS ORDERED: GENTAMICIN INJ 160 MG in SODIUM CHLORIDE 0.9% 100 ML IV ONE (03:00)
[2016-09-19 03:17] LABS: Band Neutrophils 4 % (0-10); Lymphocytes 23 % (20-55); Segmented Neutrophils 63 % (50-85); Total Cells Counted 100
[2016-09-19 03:18] LABS: Platelet Estimate Adequate
[2016-09-19 03:35] LABS: ABG Base Excess -13.9 MMOL/L (-2.5-2.5); ABG HCO3 13.9 MMOL/L (20-26); ABG Oxygen Saturation 98.8 % (95-100); ABG PCO2 34.6 MM HG (35-48); ABG TCO2 12.3 MMOL/L (23-27); Allen Test Positive; Pt O2 Delivery Device Ventilator
[2016-09-19 03:37] LABS: ABG PH 7.199 (7.35-7.45)
[2016-09-19 04:17] LABS: Basophils % 0.2 % (0.0-0.8); Hematocrit 38.1 VOL% (42.0-52.0); Hemoglobin 11.8 GM/DL (14.0-18.0); Immature Granulocytes Absolute 0.13 #; Lymphocytes # 1.2 10*3/uL (1.4-4.0); Lymphocytes % 9.5 % (21.2-54.2); Mean Corpuscular Hemoglobin 27 PG (27-34); Mean Corpuscular Volume 86.8 FL (87-102); Mean Platelet Volume 11.3 FL (9.6-12.0); Monocytes # 1.2 10*3/uL (0.11-0.8); Monocytes % 9.8 % (1.7-12.7); NRBC # 0.03 10*3/uL; Neutrophils % 79.5 % (38.7-73.9); Platelet Count 152 T/CUMM (130-400); Red Blood Count 4.39 MC/CUMM (3.8-5.5); Red Cell Distribution Width 17.6 % (9.3-17.3); White Blood Count 12.5 T/CUMM (4-12)
[2016-09-19 04:39] LABS: Calcium 6.8 MG/DL (8.5-10.1); Magnesium 3.2 MG/DL (1.8-2.4); Osmolality,Calculated 281.7 MOS/KG (273-304); Potassium 5.5 MMOL/L (3.5-5.1)
[2016-09-19] MEDS ORDERED: SODIUM BICARBONATE 50 MEQ/50 ML SYRINGE IV ONE (04:39)
[2016-09-19 05:00] LABS: Band Neutrophils 5 % (0-10); Hypochromasia 1+; Lymphocytes 11 % (20-55); Metamyelocytes 1 %; Segmented Neutrophils 76 % (50-85); Total Cells Counted 100
[2016-09-19 05:01] LABS: Microcytosis 1+; Ovalocytes Slight; Platelet Estimate Adequate; Tear Drop Cells Slight
[2016-09-19] MEDS: LINEZOLID INJ 600 MG in PREMIX 1 EACH IV SCH ×2 (05:03→16:22)
[2016-09-19] MEDS: SODIUM BICARB INJ 100 MEQ in DEXTROSE 5% 1,000 ML IV SCH ×3 (05:19→23:49)
--- NOTE | 2016-09-19 07:00 | XRay Report ---
XR chest 1V portable Indication: Tube placement Comparison: 18 September 2016 at 2:03 PM Findings: The heart and mediastinum are stable in size and configuration. Endotracheal tube has been added with tip between fito and clavicles. The pulmonary vascularity is slightly increased with bilateral increased interstitial lung density. No other lung infiltrates, effusions, pneumothorax or other abnormality is demonstrated. Impression: Endotracheal tube position appears within normal limits. Findings suggest mild cardiac decompensation. PROCEDURE INTERPRETED AT [facility] DEPARTMENT OF RADIOLOGY Final Report Signed by: Dr. David Duckworth
--- NOTE | 2016-09-19 07:34 | Pulmonology Consult Note ---
Assessment and Plan (1) Cardiac arrest Status: Acute Assessment and plan: Patient had cardiopulmonary arrest around 2:00 this morning and is now on the ventilator. He was found to have asystole. Presently has tachycardia and a reasonable blood pressure despite being on 2 pressors. It is unclear whether this represents a cardiac cause for due to sepsis or other causes. He did have a negative VQ lung scan yesterday. Current Visit: Yes (2) Respiratory failure Status: Acute Assessment and plan: ABGs primarily show metabolic acidosis. I have increased minute ventilation a little. We will recheck ABGs. Current Visit: Yes (3) Sepsis Status: Acute Assessment and plan: Patient had fever and diarrhea prior to admission. Cultures pending from blood and urine. He is on Zyvox and Merrem which seems reasonable. Current Visit: Yes (4) Acute kidney injury Status: Acute Assessment and plan: Creatinine was 2.4 on admission and is up to 6.2 overnight. He has virtually no urine output. Will need to have nephrology consult Current Visit: Yes (5) Atrial fibrillation with RVR Status: Acute Assessment and plan: Patient was placed on amiodarone yesterday by cardiology. They will be following this. Current Visit: Yes History of Present Illness Chief complaint: Respiratory failure History of present illness: Mr. Morton is a 56 year old male came in about a day ago with shortness of breath and had fever and diarrhea. Cardiology was seeing him. Patient has a history of alcohol abuse. He is a former smoker. No known history of lung disease. He was only on medication for hypertension. Early this morning he had a cardiopulmonary arrest. He was found in asystole and had CPR and intubation. Currently is on the ventilator and has a severe metabolic acidosis and acute kidney injury. He has had atrial fibrillation with rapid ventricular response and actually some atrial flutter yesterday. Currently he has some tachycardia and is requiring pressors to keep his blood pressure up. He has had virtually no urine output in the last 4 or 5 hours. His creatinine has risen from 2.4-6.2 in the last 24 hours. Home Medications Medication Instructions Recorded Confirmed Type Aspirin [Aspirin EC] 81 mg PO DAILY 09/17/16 09/17/16 History Lisinopril/Hctz 20-25 [Prinzide 1 tablet PO DAILY 09/17/16 09/17/16 History 20-25] Allergies Allergy/AdvReac Type Severity Reaction Status Date / Time No Known Allergies Allergy Unverified 09/17/16 11:51 ROS unobtainable: due to endotracheal tube Exam (Pulmonay) H&P - Constitutional Vitals: Period Temp Pulse Resp BP Sys/Carbone Pulse Ox Last 24 Hr 97 F-101.2 F 30-136 22-49 55-162/17-110 92-100 Exam: Patient is unresponsive. Eyes return to the right. Right pupil responds. Left pupil is irregular and does not respond. Systolic blood pressure around 100. He is on 2 pressors, Levophed and dopamine. Pulse is around 120. Orotracheal tube in place. Neck supple no bruits. Chest reveals a few rales at the right base. Heart is rapid without murmur. Abdomen soft bowel sounds present no masses. Extremities no clubbing cyanosis. Trace of edema. Medical,Surgical,& Family Hx - Medical History Cardio: History of: Hypertension No history of: CAD Endocrine: No history of: Diabetes Mellitus (IDDM), Diabetes Mellitus (NIDDM), Dyslipidemia Other: History of: Miscellaneous Medical Problems (Obesity) - Surgical History Cardiac Surgeries: Patient Denies: Cardiac Catheterization - Family History Family History: Denies;: Family Heart Disease - Social History Smoking Status: Former smoker (Quit 3 years ago) Frequency of Alcohol Use: Frequently Type of Drug Use: None Results - Labs CBC & BMP: 09/19/16 04:15 09/19/16 04:15 Lab Results: I have reviewed the past 24 hour labs - Diagnostic Findings Procedure: Chest x-ray: image reviewed by me (ET tube good position. Cardiomegaly. Small right pleural effusion.)
[2016-09-19] MEDS: PROPOFOL 1,000 MG/100 ML BOTTLE IV SCH ×2 (07:35→20:12)
[2016-09-19 08:03] LABS: Albumin 2.6 G/DL (3.4-5.0); Calcium 6.3 MG/DL (8.5-10.1); Osmolality,Calculated 282.7 MOS/KG (273-304); Potassium 5.1 MMOL/L (3.5-5.1)
--- NOTE | 2016-09-19 08:20 | EKG Report ---
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
--- NOTE | 2016-09-19 08:20 | EKG Report ---
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1960 Requested by: Moises Rucker Order Number: [id number] Reading MD: WILBERT NORMAN Intervals [place] Rate: 142 P: 999 [place]: 0 QRS: -87 QRSD: 102 T: 96 QT: 207 QTc: 289 Interpretive Statements ATRIAL FLUTTER/TACHYCARDIA PATTERN CONSISTENT WITH PULMONARY DISEASE POSSIBLE RIGHT VENTRICULAR CONDUCTION DELAY INFERIOR MYOCARDIAL INFARCTION, PROBABLY OLD WITH POSTERIOR EXTENSION MARKED ST ELEVATION, CONSIDER SEPTAL INJURY ABNORMAL ECG AND NO PREVIOUS TRACING FOR COMPARISON Electronically Signed On 09-20-16 07:52:56 CDT by WILBERT NORMAN [id number]
[2016-09-19] MEDS: HYDROCORTISONE 100 MG VIAL IV SCH ×2 (08:43→16:21)
[2016-09-19] MEDS: FUROSEMIDE 40 MG/4 ML VIAL IV SCH ×2 (08:43→16:21)
[2016-09-19 08:44] LABS: Allen Test Positive; Pt O2 Delivery Device Ventilator
[2016-09-19] MEDS: PANTOPRAZOLE 40 MG TABLET PO SCH (08:44)
[2016-09-19 08:45] LABS: ABG Base Excess -10.1 MMOL/L (-2.5-2.5); ABG HCO3 16.5 MMOL/L (20-26); ABG Oxygen Saturation 99.2 % (95-100); ABG TCO2 14.5 MMOL/L (23-27)
--- NOTE | 2016-09-19 08:51 | Cardiology Progress Note ---
<Linnea Guzmán - Last Filed: 09/19/16 09:36> Assessment and Plan (1) Atrial flutter Status: Acute Assessment and plan: Atrial flutter with rapid ventricular response. This appears to be a new diagnosis. Patient has converted to sinus tachycardia. - Hold coreg for current hypotension. Patient currently on two vasopressors. - It appears that patient's IV amiodarone was discontinued. Will consider adding PO amiodarone today. Further recommendations to follow per Dr. Ludwig. Current Visit: Yes (2) Elevated troponin I level Status: Acute Assessment and plan: Troponin is now 1.7. Patient is now status post code with chest compressions. Creatinine is 6.4 this morning. We will continue to monitor cardiac biomarkers and EKG. Underlying coronary artery disease needs to be ruled out. Patient will need left heart catheterization once stabilized. Further recommendations to follow per Dr. Ludwig. Current Visit: Yes (3) Orthopnea Status: Chronic Assessment and plan: Patient now ventilated. Current Visit: Yes (4) Hypertension Status: Chronic Assessment and plan: Patient is currently hypotensive. Will hold antihypertensives for now. Continue vasopressors to keep MAP above 60. Current Visit: Yes (5) Respiratory failure Status: Acute Assessment and plan: Management per Pulmonary. VQ lung scan revealed low probability for PE. Will consider repeating echo today. Current Visit: Yes (6) Cardiopulmonary arrest Status: Acute Assessment and plan: Status post cardiopulmonary arrest yesterday. Continue ventilator and vasopressors. Daily BMP and CBC. Further recommendations to follow per Dr. Ludwig. Current Visit: Yes (7) Acute renal failure Status: Acute Assessment and plan: Consult Nephrology. Current Visit: Yes (8) Hyperkalemia Status: Acute Current Visit: Yes (9) Sepsis Status: Acute Assessment and plan: Blood and urine cultures pending. Current Visit: Yes Cardiology - PN: Subj Interval history: Patient was seen and examined in the CCU. He is status post cardiopulmonary arrest early this morning. He was asystole and required CPR and intubation. Currently, he is requiring Dopamine and Levaphed for blood pressure support. Yesterday, he was in atrial flutter with rapid ventricular response. Patient has now converted to sinus tachycardia. Heart rates around 110. He is sedated on the ventilator with severe metabolic acidosis and acute renal failure. He has been without urine output for the past 5 hours. His creatinine is up to 6.2 from 2.4 yesterday. Potassium is 5.1. Will consult Nephrology at this time for further assistance. WBC is 12.5 this morning. Patient had fever and diarrhea prior to admission. Blood and urine cultures are pending. Stool cultures were without WBC's, enteric pathogens and negative for C. Diff. Stool was 4+ positive for occult blood. Will continue to monitor closely in the CCU. Echo was done yesterday. However, patient was severely tachycardic and the patient's visualization was poor. Very difficult study therefore, could not make an adequate interpretation of this study. Will consider repeating this study. Exam (Progress Note) - Constitutional Vitals: Period Temp Pulse Resp BP Sys/Carbone Pulse Ox Last 24 Hr 97.1 F-101.2 F 30-136 22-49 55-162/17-110 92-100 General appearance: other (Patient is ventilated and sedated in the CCU. ) - Head Head exam: Present: normal inspection, normocephalic, atraumatic - ENT ENT exam: Present: other (ETT intact. ) - Respiratory Respiratory exam: Present: decreased breath sounds, rales - Cardiovascular Cardiovascular exam: Present: regular rate and rhythm, tachycardia. Absent: carotid bruit, gallop, rubs, systolic murmur - GI/Abdominal GI/Abdominal exam: Present: hypoactive bowel sounds. Absent: distended, firm, mass - Extremities Exam Extremities exam: Present: edema (trace edema to lower extremities. ) - Neurological Exam Neurological exam: Present: other (sedated on the vent) - Psychiatric Psychiatric exam: Present: other (sedated on the vent. ) - Skin Skin exam: Present: normal color, warm, dry Result/EKG - Labs CBC & BMP: 09/19/16 04:15 09/19/16 06:20 Lab Results: I have reviewed the past 24 hour labs Labs: Laboratory Results - last 24 hr 09/18/16 09/18/16 09/18/16 11:25 18:15 23:20 WBC 19.6 H D RBC 4.03 Hgb 10.9 L Hct 36.5 L MCV 90.6 MCH 27 MCHC 29.9 L RDW 17.7 H Plt Count 124 L MPV 11.5 Neut % (Auto) 67.4 Lymph % (Auto) 20.7 L [place] % (Auto) 10.0 Eos % (Auto) 0.2 Baso % (Auto) 0.3 Neut # (Auto) 13.2 H Lymph # (Auto) 4.1 H [place] # (Auto) 2.0 H Eos # (Auto) 0.0 Baso # (Auto) 0.1 Total Counted 100 Immature Gran % 1.4 Nucleated RBC % 0.3 Immature Gran # 0.28 Segmented Neutrophils 63 Band Neutrophils 4 Lymphocytes 23 Monocytes 10 Metamyelocytes Nucleated RBCs # 0.06 Platelet Estimate Adequate Hypochromasia Microcytosis Tear Drop Cells Ovalocytes Morphology Comment INR PT Patient/Control Mix D-Dimer, Quantitative Circ Anticoag PTT ABG pH 6.999 L* ABG pCO2 30.3 L ABG pO2 317.0 H ABG HCO3 8.2 L ABG Total CO2 7.2 L ABG O2 Saturation 98.0 ABG Base Excess -23.5 L FiO2 Sodium Potassium Chloride Carbon Dioxide Anion Gap BUN Creatinine GFR Calculation BUN/Creatinine Ratio Glucose Calculated Osmolality Calcium Phosphorus Magnesium Total Bilirubin AST ALT Alkaline Phosphatase Troponin I Total Protein Albumin Globulin Albumin/Globulin Ratio Free T4 TSH 3rd Generation Urine Color Red Urine Appearance Cloudy Urine pH 6.0 Ur Specific [place] 1.016 Urine Protein 100 Urine Glucose (UA) Negative Urine Ketones 5 Urine Blood Large Urine Nitrate Negative Urine Bilirubin Negative Urine Urobilinogen < 2.0 H Urine Leukocytes Trace Urine RBC 13 Urine WBC 33 Ur Squamous Epith Cells Occasional Urine Bacteria Few Ur Culture Indicated? Results to follow 09/18/16 09/18/16 09/18/16 23:25 23:25 23:25 WBC RBC Hgb Hct MCV MCH MCHC RDW Plt Count MPV Neut % (Auto) Lymph % (Auto) [place] % (Auto) Eos % (Auto) Baso % (Auto) Neut # (Auto) Lymph # (Auto) [place] # (Auto) Eos # (Auto) Baso # (Auto) Total Counted Immature Gran % Nucleated RBC % Immature Gran # Segmented Neutrophils Band Neutrophils Lymphocytes Monocytes Metamyelocytes Nucleated RBCs # Platelet Estimate Hypochromasia Microcytosis Tear Drop Cells Ovalocytes Morphology Comment INR PT Patient/Control Mix D-Dimer, Quantitative 8.9 Circ Anticoag PTT ABG pH ABG pCO2 ABG pO2 ABG HCO3 ABG Total CO2 ABG O2 Saturation ABG Base Excess FiO2 Sodium 136 Potassium 4.4 Chloride 100 Carbon Dioxide 12 L Anion Gap 28.4 H BUN 40 H Creatinine 5.60 H GFR Calculation 20 BUN/Creatinine Ratio 7.00 Glucose 143 H Calculated Osmolality 283.0 Calcium 10.1 Phosphorus Magnesium 3.7 H Total Bilirubin 0.60 AST 1674 H ALT 303 H Alkaline Phosphatase 43 L Troponin I Total Protein 7.2 Albumin 2.9 L Globulin 4.3 H Albumin/Globulin Ratio 0.6 L Free T4 TSH 3rd Generation Urine Color Urine Appearance Urine pH Ur Specific [place] Urine Protein Urine Glucose (UA) Urine Ketones Urine Blood Urine Nitrate Urine Bilirubin Urine Urobilinogen Urine Leukocytes Urine RBC Urine WBC Ur Squamous Epith Cells Urine Bacteria Ur Culture Indicated? 09/18/16 09/18/16 09/19/16 23:25 23:25 01:20 WBC RBC Hgb Hct MCV MCH MCHC RDW Plt Count MPV Neut % (Auto) Lymph % (Auto) [place] % (Auto) Eos % (Auto) Baso % (Auto) Neut # (Auto) Lymph # (Auto) [place] # (Auto) Eos # (Auto) Baso # (Auto) Total Counted Immature Gran % Nucleated RBC % Immature Gran # Segmented Neutrophils Band Neutrophils Lymphocytes Monocytes Metamyelocytes Nucleated RBCs # Platelet Estimate Hypochromasia Microcytosis Tear Drop Cells Ovalocytes Morphology Comment INR 1.0 PT Patient/Control Mix 10.9 D-Dimer, Quantitative Circ Anticoag PTT 38.7 ABG pH ABG pCO2 ABG pO2 ABG HCO3 ABG Total CO2 ABG O2 Saturation ABG Base Excess FiO2 Sodium Potassium Chloride Carbon Dioxide Anion Gap BUN Creatinine GFR Calculation BUN/Creatinine Ratio Glucose Calculated Osmolality Calcium Phosphorus Magnesium Total Bilirubin AST ALT Alkaline Phosphatase Troponin I 1.720 H D Total Protein Albumin Globulin Albumin/Globulin Ratio Free T4 0.87 TSH 3rd Generation 2.990 Urine Color Urine Appearance Urine pH Ur Specific [place] Urine Protein Urine Glucose (UA) Urine Ketones Urine Blood Urine Nitrate Urine Bilirubin Urine Urobilinogen Urine Leukocytes Urine RBC Urine WBC Ur Squamous Epith Cells Urine Bacteria Ur Culture Indicated? 09/19/16 09/19/16 09/19/16 03:25 04:15 04:15 WBC 12.5 H D RBC 4.39 Hgb 11.8 L Hct 38.1 L MCV 86.8 L MCH 27 MCHC 31.0 L RDW 17.6 H Plt Count 152 D MPV 11.3 Neut % (Auto) 79.5 H Lymph % (Auto) 9.5 L [place] % (Auto) 9.8 Eos % (Auto) 0.0 Baso % (Auto) 0.2 Neut # (Auto) 10.0 H Lymph # (Auto) 1.2 L [place] # (Auto) 1.2 H Eos # (Auto) 0.0 Baso # (Auto) 0.0 Total Counted 100 Immature Gran % 1.0 Nucleated RBC % 0.2 Immature Gran # 0.13 Segmented Neutrophils 76 Band Neutrophils 5 Lymphocytes 11 L Monocytes 7 Metamyelocytes 1 Nucleated RBCs # 0.03 Platelet Estimate Adequate Hypochromasia 1+ Microcytosis 1+ Tear Drop Cells Slight Ovalocytes Slight Morphology Comment INR PT Patient/Control Mix D-Dimer, Quantitative Circ Anticoag PTT ABG pH 7.199 L* ABG pCO2 34.6 L ABG pO2 243.0 H ABG HCO3 13.9 L ABG Total CO2 12.3 L ABG O2 Saturation 98.8 ABG Base Excess -13.9 L FiO2 60.00 Sodium 131 L Potassium 5.5 H Chloride 98 Carbon Dioxide 17 L Anion Gap 21.5 H BUN 49 H Creatinine 6.20 H GFR Calculation 17 BUN/Creatinine Ratio 7.00 Glucose 227 H Calculated Osmolality 281.7 Calcium 6.8 L Phosphorus Magnesium 3.2 H Total Bilirubin AST ALT Alkaline Phosphatase Troponin I Total Protein Albumin Globulin Albumin/Globulin Ratio Free T4 TSH 3rd Generation Urine Color Urine Appearance Urine pH Ur Specific [place] Urine Protein Urine Glucose (UA) Urine Ketones Urine Blood Urine Nitrate Urine Bilirubin Urine Urobilinogen Urine Leukocytes Urine RBC Urine WBC Ur Squamous Epith Cells Urine Bacteria Ur Culture Indicated? 09/19/16 09/19/16 06:20 08:35 WBC RBC Hgb Hct MCV MCH MCHC RDW Plt Count MPV Neut % (Auto) Lymph % (Auto) [place] % (Auto) Eos % (Auto) Baso % (Auto) Neut # (Auto) Lymph # (Auto) [place] # (Auto) Eos # (Auto) Baso # (Auto) Total Counted Immature Gran % Nucleated RBC % Immature Gran # Segmented Neutrophils Band Neutrophils Lymphocytes Monocytes Metamyelocytes Nucleated RBCs # Platelet Estimate Hypochromasia Microcytosis Tear Drop Cells Ovalocytes Morphology Comment INR PT Patient/Control Mix D-Dimer, Quantitative Circ Anticoag PTT ABG pH 7.270 L ABG pCO2 35.0 ABG pO2 231.0 H ABG HCO3 16.5 L ABG Total CO2 14.5 L ABG O2 Saturation 99.2 ABG Base Excess -10.1 L FiO2 60.00 Sodium 131 L Potassium 5.1 Chloride 96 L Carbon Dioxide 19 L Anion Gap 21.1 H BUN 47 H Creatinine 6.40 H GFR Calculation 17 BUN/Creatinine Ratio 7.00 Glucose 267 H Calculated Osmolality 282.7 Calcium 6.3 L Phosphorus 11.0 H Magnesium Total Bilirubin AST ALT Alkaline Phosphatase Troponin I Total Protein Albumin 2.6 L Globulin Albumin/Globulin Ratio Free T4 TSH 3rd Generation Urine Color Urine Appearance Urine pH Ur Specific [place] Urine Protein Urine Glucose (UA) Urine Ketones Urine Blood Urine Nitrate Urine Bilirubin Urine Urobilinogen Urine Leukocytes Urine RBC Urine WBC Ur Squamous Epith Cells Urine Bacteria Ur Culture Indicated? <Maxwell Ludwig Tera - Last Filed: 09/19/16 10:55> Cardiology - PN: Subj Interval history: Patient personally examined. Interview is not available since the patient is sedated on ventilator. Chart reviewed in the events noted. Agree with Linnea Guzmán SENIOR RECEPTIONIST's evaluation and postcode course is been reviewed. The patient had an acute event last night when he suddenly became bradycardic and asystole rapidly. Certainly this may have been secondary to light cardiac issue but also the possibility of a pulmonary embolus or other. He is presently on heparin. He is also on pressors but it is not clear what his true pressures are. There is no lower difficulty in ascertaining his peripheral pressures. With him on pressor agents he certainly needs to have his actual blood pressure monitor. He needs an A-line. We will proceed with that. Postprocedural need to watch his groin since he is on heparin. Exam (Progress Note) - Constitutional Vitals: Period Temp Pulse Resp BP Sys/Carbone Pulse Ox Last 24 Hr 97.1 F-101.2 F 30-136 22-49 55-162/17-107 92-100 Result/EKG - Labs CBC & BMP: 09/19/16 04:15 09/19/16 06:20 Labs: Laboratory Results - last 24 hr 09/18/16 09/18/16 09/18/16 11:25 18:15 23:20 WBC 19.6 H D RBC 4.03 Hgb 10.9 L Hct 36.5 L MCV 90.6 MCH 27 MCHC 29.9 L RDW 17.7 H Plt Count 124 L MPV 11.5 Neut % (Auto) 67.4 Lymph % (Auto) 20.7 L [place] % (Auto) 10.0 Eos % (Auto) 0.2 Baso % (Auto) 0.3 Neut # (Auto) 13.2 H Lymph # (Auto) 4.1 H [place] # (Auto) 2.0 H Eos # (Auto) 0.0 Baso # (Auto) 0.1 Total Counted 100 Immature Gran % 1.4 Nucleated RBC % 0.3 Immature Gran # 0.28 Segmented Neutrophils 63 Band Neutrophils 4 Lymphocytes 23 Monocytes 10 Metamyelocytes Nucleated RBCs # 0.06 Platelet Estimate Adequate Hypochromasia Microcytosis Tear Drop Cells Ovalocytes Morphology Comment INR PT Patient/Control Mix D-Dimer, Quantitative Circ Anticoag PTT ABG pH 6.999 L* ABG pCO2 30.3 L ABG pO2 317.0 H ABG HCO3 8.2 L ABG Total CO2 7.2 L ABG O2 Saturation 98.0 ABG Base Excess -23.5 L FiO2 Sodium Potassium Chloride Carbon Dioxide Anion Gap BUN Creatinine GFR Calculation BUN/Creatinine Ratio Glucose Calculated Osmolality Calcium Phosphorus Magnesium Total Bilirubin AST ALT Alkaline Phosphatase Troponin I Total Protein Albumin Globulin Albumin/Globulin Ratio Free T4 TSH 3rd Generation Urine Color Red Urine Appearance Cloudy Urine pH 6.0 Ur Specific [place] 1.016 Urine Protein 100 Urine Glucose (UA) Negative Urine Ketones 5 Urine Blood Large Urine Nitrate Negative Urine Bilirubin Negative Urine Urobilinogen < 2.0 H Urine Leukocytes Trace Urine RBC 13 Urine WBC 33 Ur Squamous Epith Cells Occasional Urine Bacteria Few Ur Culture Indicated? Results to follow 09/18/16 09/18/16 09/18/16 23:25 23:25 23:25 WBC RBC Hgb Hct MCV MCH MCHC RDW Plt Count MPV Neut % (Auto) Lymph % (Auto) [place] % (Auto) Eos % (Auto) Baso % (Auto) Neut # (Auto) Lymph # (Auto) [place] # (Auto) Eos # (Auto) Baso # (Auto) Total Counted Immature Gran % Nucleated RBC % Immature Gran # Segmented Neutrophils Band Neutrophils Lymphocytes Monocytes Metamyelocytes Nucleated RBCs # Platelet Estimate Hypochromasia Microcytosis Tear Drop Cells Ovalocytes Morphology Comment INR PT Patient/Control Mix D-Dimer, Quantitative 8.9 Circ Anticoag PTT ABG pH ABG pCO2 ABG pO2 ABG HCO3 ABG Total CO2 ABG O2 Saturation ABG Base Excess FiO2 Sodium 136 Potassium 4.4 Chloride 100 Carbon Dioxide 12 L Anion Gap 28.4 H BUN 40 H Creatinine 5.60 H GFR Calculation 20 BUN/Creatinine Ratio 7.00 Glucose 143 H Calculated Osmolality 283.0 Calcium 10.1 Phosphorus Magnesium 3.7 H Total Bilirubin 0.60 AST 1674 H ALT 303 H Alkaline Phosphatase 43 L Troponin I Total Protein 7.2 Albumin 2.9 L Globulin 4.3 H Albumin/Globulin Ratio 0.6 L Free T4 TSH 3rd Generation Urine Color Urine Appearance Urine pH Ur Specific [place] Urine Protein Urine Glucose (UA) Urine Ketones Urine Blood Urine Nitrate Urine Bilirubin Urine Urobilinogen Urine Leukocytes Urine RBC Urine WBC Ur Squamous Epith Cells Urine Bacteria Ur Culture Indicated? 09/18/16 09/18/16 09/19/16 23:25 23:25 01:20 WBC RBC Hgb Hct MCV MCH MCHC RDW Plt Count MPV Neut % (Auto) Lymph % (Auto) [place] % (Auto) Eos % (Auto) Baso % (Auto) Neut # (Auto) Lymph # (Auto) [place] # (Auto) Eos # (Auto) Baso # (Auto) Total Counted Immature Gran % Nucleated RBC % Immature Gran # Segmented Neutrophils Band Neutrophils Lymphocytes Monocytes Metamyelocytes Nucleated RBCs # Platelet Estimate Hypochromasia Microcytosis Tear Drop Cells Ovalocytes Morphology Comment INR 1.0 PT Patient/Control Mix 10.9 D-Dimer, Quantitative Circ Anticoag PTT 38.7 ABG pH ABG pCO2 ABG pO2 ABG HCO3 ABG Total CO2 ABG O2 Saturation ABG Base Excess FiO2 Sodium Potassium Chloride Carbon Dioxide Anion Gap BUN Creatinine GFR Calculation BUN/Creatinine Ratio Glucose Calculated Osmolality Calcium Phosphorus Magnesium Total Bilirubin AST ALT Alkaline Phosphatase Troponin I 1.720 H D Total Protein Albumin Globulin Albumin/Globulin Ratio Free T4 0.87 TSH 3rd Generation 2.990 Urine Color Urine Appearance Urine pH Ur Specific [place] Urine Protein Urine Glucose (UA) Urine Ketones Urine Blood Urine Nitrate Urine Bilirubin Urine Urobilinogen Urine Leukocytes Urine RBC Urine WBC Ur Squamous Epith Cells Urine Bacteria Ur Culture Indicated? 09/19/16 09/19/16 09/19/16 03:25 04:15 04:15 WBC 12.5 H D RBC 4.39 Hgb 11.8 L Hct 38.1 L MCV 86.8 L MCH 27 MCHC 31.0 L RDW 17.6 H Plt Count 152 D MPV 11.3 Neut % (Auto) 79.5 H Lymph % (Auto) 9.5 L [place] % (Auto) 9.8 Eos % (Auto) 0.0 Baso % (Auto) 0.2 Neut # (Auto) 10.0 H Lymph # (Auto) 1.2 L [place] # (Auto) 1.2 H Eos # (Auto) 0.0 Baso # (Auto) 0.0 Total Counted 100 Immature Gran % 1.0 Nucleated RBC % 0.2 Immature Gran # 0.13 Segmented Neutrophils 76 Band Neutrophils 5 Lymphocytes 11 L Monocytes 7 Metamyelocytes 1 Nucleated RBCs # 0.03 Platelet Estimate Adequate Hypochromasia 1+ Microcytosis 1+ Tear Drop Cells Slight Ovalocytes Slight Morphology Comment INR PT Patient/Control Mix D-Dimer, Quantitative Circ Anticoag PTT ABG pH 7.199 L* ABG pCO2 34.6 L ABG pO2 243.0 H ABG HCO3 13.9 L ABG Total CO2 12.3 L ABG O2 Saturation 98.8 ABG Base Excess -13.9 L FiO2 60.00 Sodium 131 L Potassium 5.5 H Chloride 98 Carbon Dioxide 17 L Anion Gap 21.5 H BUN 49 H Creatinine 6.20 H GFR Calculation 17 BUN/Creatinine Ratio 7.00 Glucose 227 H Calculated Osmolality 281.7 Calcium 6.8 L Phosphorus Magnesium 3.2 H Total Bilirubin AST ALT Alkaline Phosphatase Troponin I Total Protein Albumin Globulin Albumin/Globulin Ratio Free T4 TSH 3rd Generation Urine Color Urine Appearance Urine pH Ur Specific [place] Urine Protein Urine Glucose (UA) Urine Ketones Urine Blood Urine Nitrate Urine Bilirubin Urine Urobilinogen Urine Leukocytes Urine RBC Urine WBC Ur Squamous Epith Cells Urine Bacteria Ur Culture Indicated? 09/19/16 09/19/16 09/19/16 06:20 08:32 08:35 WBC RBC Hgb Hct MCV MCH MCHC RDW Plt Count MPV Neut % (Auto) Lymph % (Auto) [place] % (Auto) Eos % (Auto) Baso % (Auto) Neut # (Auto) Lymph # (Auto) [place] # (Auto) Eos # (Auto) Baso # (Auto) Total Counted Immature Gran % Nucleated RBC % Immature Gran # Segmented Neutrophils Band Neutrophils Lymphocytes Monocytes Metamyelocytes Nucleated RBCs # Platelet Estimate Hypochromasia Microcytosis Tear Drop Cells Ovalocytes Morphology Comment INR 1.1 PT Patient/Control Mix 11.4 D-Dimer, Quantitative Circ Anticoag PTT 43.9 H ABG pH 7.270 L ABG pCO2 35.0 ABG pO2 231.0 H ABG HCO3 16.5 L ABG Total CO2 14.5 L ABG O2 Saturation 99.2 ABG Base Excess -10.1 L FiO2 60.00 Sodium 131 L Potassium 5.1 Chloride 96 L Carbon Dioxide 19 L Anion Gap 21.1 H BUN 47 H Creatinine 6.40 H GFR Calculation 17 BUN/Creatinine Ratio 7.00 Glucose 267 H Calculated Osmolality 282.7 Calcium 6.3 L Phosphorus 11.0 H Magnesium Total Bilirubin AST ALT Alkaline Phosphatase Troponin I Total Protein Albumin 2.6 L Globulin Albumin/Globulin Ratio Free T4 TSH 3rd Generation Urine Color Urine Appearance Urine pH Ur Specific [place] Urine Protein Urine Glucose (UA) Urine Ketones Urine Blood Urine Nitrate Urine Bilirubin Urine Urobilinogen Urine Leukocytes Urine RBC Urine WBC Ur Squamous Epith Cells Urine Bacteria Ur Culture Indicated?
[2016-09-19] MEDS: CARVEDILOL 6.25 MG TABLET PO SCH (09:00)
--- NOTE | 2016-09-19 09:40 | EKG Report ---
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
[2016-09-19 10:17] LABS: INR 1.1; PT Patient Result 11.4 SECS
[2016-09-19 10:24] LABS: Partial Thromboplastin Time 43.9 SECS (0-40)
[2016-09-19] MEDS ORDERED: HEPARIN/NACL 0.9% 2 UNITS/ML 500 ML IV ONE (11:05)
--- NOTE | 2016-09-19 11:33 | Event Note ---
Arterial line placement Procedure: Right femoral artery arterial line placement. Indications: Patient hypotensive on multiple pressors. Approach: Right groin to right femoral artery. Sedation/anesthesia: Patient already on propofol IV. No local anesthesia needed. Patient's right groin was prepped and draped in usual sterile fashion. At that time Doppler was used to locate the femoral artery adequately. A large-bore needle then used to cannulate the right common femoral artery through which a guidewire was advanced. Over the guidewire the 6 [place] attrition sheath was advanced and placed in position. It was sutured in place with 2-0 silk. The sheath was then flushed and connected to a line monitoring. Wound and covered sterilely. There was no immediate complications.
--- NOTE | 2016-09-19 12:04 | Hospitalist Progress Note ---
Assessment and Plan (1) Atrial fibrillation with RVR Status: Acute Assessment and plan: Impression: 1. Atrial fibrillation with rapid ventricular rate and elevated troponin. 2. Acute renal failure/ATN 3. Probable shock liver 4. Diarrhea and fever Plan: Continue current care: Vasopressors, IV fluids, ventilator support. Appreciate assistance from the consultants. This note was completed using [employer] voice recognition software. There may be procurement assistant errors as a result. Current Visit: Yes Hospitalist: Subjective Interval history: Follow-up follow-up atrial fibrillation. The patient had a cardiac arrest last night. He was moved to the ICU. He is currently on 2 vasopressors. He is unresponsive and sedated on the ventilator. Cardiology and pulmonary are seeing him along with us now. Following the arrest, he has now converted to sinus rhythm. Exam - Constitutional Vitals: Period Temp Pulse Resp BP Sys/Carbone Pulse Ox Last 24 Hr 97.1 F-101.2 F 30-108 22-49 55-162/17-107 92-100 He is hypotensive. Heart is regular with very distant tones. He is moving air bilaterally. I do not hear any rales anteriorly. Abdomen is protuberant with occasional bowel sounds. Results - Labs CBC & BMP: 09/19/16 04:15 09/19/16 06:20 Lab Results: I have reviewed the past 24 hour labs
[2016-09-19 15:21] LABS: Basophils % 0.2 % (0.0-0.8); Hematocrit 36.5 VOL% (42.0-52.0); Hemoglobin 11.7 GM/DL (14.0-18.0); Immature Granulocytes % 1.1 %; Immature Granulocytes Absolute 0.13 #; Lymphocytes % 8.6 % (21.2-54.2); Mean Corpuscular HGB Conc 32.1 GM/DL (32-36); Mean Corpuscular Hemoglobin 27 PG (27-34); Mean Corpuscular Volume 84.1 FL (87-102); Mean Platelet Volume 11.1 FL (9.6-12.0); Monocytes # 1.1 10*3/uL (0.11-0.8); Monocytes % 9.5 % (1.7-12.7); Neutrophils # 9.4 10*3/uL (1.4-7.4); Neutrophils % 80.6 % (38.7-73.9); Platelet Count 114 T/CUMM (130-400); Red Blood Count 4.34 MC/CUMM (3.8-5.5); Red Cell Distribution Width 17.3 % (9.3-17.3); White Blood Count 11.6 T/CUMM (4-12)
[2016-09-19 15:34] LABS: INR 1.1; PT Patient Result 11.9 SECS
--- NOTE | 2016-09-19 15:40 | Nephrology Consult Note ---
History of Present Illness Chief complaint: VIDAL History of present illness: Mr. Morton is a 56 year old male who sustained cardiopulmonary arrest early this am. Anuric since that time. Creatinine from 2.4 to over 6. Unresponsive since code, left pupil unresponsive. He is however overbreathing the vent. I saw him early this morning. Bolused a liter of bicarb containing fluid and increased the maintenance bicarb infusion rate to 150cc/hr. His Bp has increased a little with SBP in 90s now max out on two pressors. He presented according to chart review for diarrhea, platelets were 124k yesterday so, DIC and HUS/TTP panels as well as peripheral blood smear to evaluate for schistocytes is pending. Home Medications Medication Instructions Recorded Confirmed Type Aspirin [Aspirin EC] 81 mg PO DAILY 09/17/16 09/17/16 History Lisinopril/Hctz 20-25 [Prinzide 1 tablet PO DAILY 09/17/16 09/17/16 History 20-25] Allergies Allergy/AdvReac Type Severity Reaction Status Date / Time No Known Allergies Allergy Unverified 09/17/16 11:51 Medical,Surgical,& Family Hx - Medical History Cardio: History of: Hypertension No history of: CAD Endocrine: No history of: Diabetes Mellitus (IDDM), Diabetes Mellitus (NIDDM), Dyslipidemia Other: History of: Miscellaneous Medical Problems (Obesity) - Surgical History Cardiac Surgeries: Patient Denies: Cardiac Catheterization - Family History Family History: Denies;: Family Heart Disease - Social History Smoking Status: Former smoker (Quit 3 years ago) Frequency of Alcohol Use: Frequently Type of Drug Use: None Review of Systems ROS unobtainable: due to endotracheal tube Exam - Vital Signs Vital signs: Period Temp Pulse Resp BP Sys/Carbone Pulse Ox Last 24 Hr 97.1 F-101.2 F 30-108 22-49 55-162/17-107 90-100 - General Appearance General appearance: well-developed, obese EENT: ATNC, mucous membranes moist Neck: no JVD, no carotid bruit Respiratory: no kyphosis, clear Cardiology: no murmurs, no rub, no edema Gastrointestinal: hypoactive bowel sounds, no masses Integumentary: no rash, cool/clammy (cool and dry) Neurologic: obtunded Musculoskeletal: no deformities, no erythema Results - Labs CBC & BMP: 09/19/16 15:12 09/19/16 06:20 Assessment and Plan (1) Sepsis Status: Acute Current Visit: Yes (2) Acute kidney injury Problem details: No acute indication for renal replacement therapy yet. He currently is too hemodynamically unstable to tolerate conventional hemodialysis. DIC/HUS/TTP evaluation underway. Getting steroids, will start albumin to help with oncotic pressure. Status: Acute Current Visit: Yes (3) Respiratory failure Status: Acute Current Visit: Yes (4) Cardiopulmonary arrest Status: Acute Current Visit: Yes
[2016-09-19 15:41] LABS: Lymphocytes 11 % (20-55); Segmented Neutrophils 84 % (50-85); Total Cells Counted 100
[2016-09-19 15:42] LABS: Burr Cells Few; Hypochromasia Slight; Ovalocytes Few; Platelet Estimate Decreased; Poikilocytosis 1+; Tear Drop Cells Few
[2016-09-19 15:43] LABS: D-Dimer 32.5 MG/L FEU
[2016-09-19 15:47] LABS: Fibrinogen Quant Value 749 MG% (200-400)
[2016-09-19] MEDS ORDERED: ALBUMIN 5% 25 GM in PREMIX 1 EACH IV SCH (16:00)
[2016-09-19] MEDS: NOREPINEPHRINE 8 MG in SODIUM CHLORIDE 0.9% 242 ML IV SCH ×2 (19:28→23:49)
[2016-09-19 19:38] LABS: Bilirubin,Direct 0.4 MG/DL (0.0-0.20); Bilirubin,Indirect 0.3 MG/DL (0.0-1.0); Bilirubin,Total 0.7 MG/DL (0.2-1.0)
[2016-09-19] MEDS ORDERED: EPINEPHrine 1 MG/ML VIAL ONE ×2 (20:27→20:32)
[2016-09-19 20:30] LABS: ABG Base Excess 4.7 MMOL/L (-2.5-2.5); ABG HCO3 28.6 MMOL/L (20-26); ABG Oxygen Saturation 96.5 % (95-100); ABG PCO2 48.7 MM HG (35-48); ABG PH 7.404 (7.35-7.45)
[2016-09-19] MEDS ORDERED: AMIODARONE 450 MG/9 ML VIAL IV ONE ×2 (20:54→20:55)
[2016-09-19] MEDS ORDERED: EPINEPHrine 1 MG/10 ML SYRINGE ONE ×2 (20:55)
--- NOTE | 2016-09-19 21:18 | Event Note ---
AMANDA MOLINA called Patient found the ICU room 119 already intubated and mechanically ventilated, maxed out on 2 pressors and is unresponsive. His rate became bradycardic and went asystolic. He suffered a previous cardiopulmonary arrest around 2 AM last night. He has been an uric and is in acute renal failure. Patient was noted to have a temperature of 101 degrees prior to this event. Routine ACLS protocol was followed with chest compressions and epinephrine administration through his right femoral central line. An ABG and labs were drawn during the resuscitation process. The patient received several bouts of epinephrine as well as bicarbonate and calcium infusion. The patient regained a pulse only momentarily and had erratic rhythms that were wide complex in nature and could not regain a pulse. Patient was started on epinephrine and given amiodarone in an effort to stabilize his rhythm. A bicarb drip was already infusing. Cardiopulmonary resuscitation with CPR and medications lasted greater than 35 minutes. I had a conversation with the patient's family namely his mother who requested that we stop invasive measures of resuscitation and that she did not want her son to suffer any further. The patient was pronounced at 2100 without a pulse or spontaneous respirations. AMANDA MOLINA was initiated at 2019. Time of 2100. I was at the bedside for the entire time. Cause of Acute cardiopulmonary arrest Acute renal failure with acute kidney injury with anuric failure Metabolic acidosis Cardiac arrhythmia
--- NOTE | 2016-09-19 21:22 | Discharge Summary ---
Hospital Course - Hospital Course Hospital Course: Mr. Morton is a 56-year-old black male that was admitted through the emergency department with fever and diarrhea. He was found to have atrial fibrillation with rapid ventricular response and was initially admitted to telemetry on a Cardizem drip. On the night of his hospitalization, the patient had cardiopulmonary arrest and was transferred to the intensive care unit requiring mechanical ventilation and pressor support. He developed acute kidney injury with acute renal failure, hyperkalemia, and uric renal failure and metabolic acidosis. He was seen in consultation by pulmonary and nephrology as well as cardiology. This evening at approximately 2019 a CODE BLUE was called. Patient found the ICU room 119 already intubated and mechanically ventilated, maxed out on 2 pressors and is unresponsive. His rate became bradycardic and went asystolic. He suffered a previous cardiopulmonary arrest around 2 AM last night. He has been an uric and is in acute renal failure. Patient was noted to have a temperature of 101 degrees prior to this event. Routine ACLS protocol was followed with chest compressions and epinephrine administration through his right femoral central line. An ABG and labs were drawn during the resuscitation process. The patient received several bouts of epinephrine as well as bicarbonate and calcium infusion. The patient regained a pulse only momentarily and had erratic rhythms that were wide complex in nature and could not regain a pulse. Patient was started on epinephrine and given amiodarone in an effort to stabilize his rhythm. A bicarb drip was already infusing. Cardiopulmonary resuscitation with CPR and medications lasted greater than 35 minutes. I had a conversation with the patient's family namely his mother who requested that we stop invasive measures of resuscitation and that she did not want her son to suffer any further. The patient was pronounced at 2100 without a pulse or spontaneous respirations. CODE BLUE was initiated at 2019. Time of 2100. I was at the bedside for the entire time. Cause of : Acute cardiopulmonary arrest severe sepsis with shock Acute renal failure with acute kidney injury with anuric failure Metabolic acidosis Cardiac arrhythmia - Time spent with patient Time with patient DS: Greater than 30 minutes (Total discharge time for this patient, including [id number] time, clinical documentation, medication reconciliation, and cardiopulmonary resuscitation was 40 minutes.) - Cause of Cause of : cardiopulmonary arrest, acute renal failure, severe sepsis with shock Discharge Plan - Discharge Data Disposition: - Discharge Medications No Action Lisinopril/Hctz 20-25 [Prinzide 20-25] 1 tablet PO DAILY Aspirin [Aspirin EC] 81 mg PO DAILY - Follow Up or Referral - Forms/Instructions Exam - Constitutional Vitals: Period Temp Pulse Resp BP Sys/Carbone Pulse Ox Last 24 Hr 97.1 F-98.7 F 30-101 16-49 55-162/17-107 90-100 Discharge Results Procedures and tests throughout hospitalization: Pending Orders 09/18/16 Urine Culture Routine 09/18/16 11:55 Stool Culture Routine 09/18/16 17:43 Occult Blood, Stool Stat 09/19/16 01:49 Blood Culture Stat 09/19/16 04:13 MRSA Surveillence, Inf Control Routine 09/19/16 15:12 Peripheral Blood Smear Profile Stat 09/19/16 20:25 CMP [Comprehensive Metabolic Panel] Stat 09/19/16 23:00 PTT [Partial Thromboplastin Time] Q6H 09/20/16 04:00 BMP w/ Mg [Basic Metabolic Panel w/Mg] IN AM 09/20/16 05:00 PTT [Partial Thromboplastin Time] Q6H 09/20/16 11:00 PTT [Partial Thromboplastin Time] Q6H Labs on day of discharge: Labs from last 24 hours 09/19/16 09/19/16 09/19/16 20:31 16:44 16:44 WBC RBC Hgb Hct MCV MCH MCHC RDW Plt Count MPV Neut % (Auto) Lymph % (Auto) [place] % (Auto) Eos % (Auto) Baso % (Auto) Neut # (Auto) Lymph # (Auto) [place] # (Auto) Eos # (Auto) Baso # (Auto) Total Counted Immature Gran % Nucleated RBC % Immature Gran # Segmented Neutrophils Band Neutrophils Lymphocytes Monocytes Metamyelocytes Nucleated RBCs # Platelet Estimate Hypochromasia Poikilocytosis Microcytosis Tear Drop Cells Ovalocytes Belle Cells Morphology Comment Peripheral Blood Smear Peripher Smr Path Cons Haptoglobin INR PT Patient/Control Mix Fibrinogen D-Dimer, Quantitative Circ Anticoag PTT Plt Func Screen - ADP Plt Func Scrn - Epineph ABG pH 7.404 ABG pCO2 48.7 H ABG pO2 101.0 H ABG HCO3 28.6 H ABG Total CO2 27.0 ABG O2 Saturation 96.5 ABG Base Excess 4.7 H FiO2 Sodium Potassium Chloride Carbon Dioxide Anion Gap BUN Creatinine GFR Calculation BUN/Creatinine Ratio Glucose Calculated Osmolality Lactic Acid 1.2 Calcium Phosphorus Magnesium Total Bilirubin Direct Bilirubin Indirect Bilirubin AST ALT Alkaline Phosphatase Lactate Dehydrogenase Troponin I Total Protein Albumin Globulin Albumin/Globulin Ratio Free T4 TSH 3rd Generation HOLA (IgG-AHG) Negative HOLA, Polyspecific Negative 09/19/16 09/19/16 09/19/16 16:44 16:44 15:12 WBC RBC Hgb Hct MCV MCH MCHC RDW Plt Count MPV Neut % (Auto) Lymph % (Auto) [place] % (Auto) Eos % (Auto) Baso % (Auto) Neut # (Auto) Lymph # (Auto) [place] # (Auto) Eos # (Auto) Baso # (Auto) Total Counted Immature Gran % Nucleated RBC % Immature Gran # Segmented Neutrophils Band Neutrophils Lymphocytes Monocytes Metamyelocytes Nucleated RBCs # Platelet Estimate Hypochromasia Poikilocytosis Microcytosis Tear Drop Cells Ovalocytes Langley Cells Morphology Comment Peripheral Blood Smear Peripher Smr Path Cons Haptoglobin 318.0 H INR 1.1 PT Patient/Control Mix 11.9 Fibrinogen 749 H D-Dimer, Quantitative 32.5 Circ Anticoag PTT 81.8 H 73.0 H D Plt Func Screen - ADP > 300 H Plt Func Scrn - Epineph 171 H ABG pH ABG pCO2 ABG pO2 ABG HCO3 ABG Total CO2 ABG O2 Saturation ABG Base Excess FiO2 Sodium Potassium Chloride Carbon Dioxide Anion Gap BUN Creatinine GFR Calculation BUN/Creatinine Ratio Glucose Calculated Osmolality Lactic Acid Calcium Phosphorus Magnesium Total Bilirubin 0.70 Direct Bilirubin 0.40 H Indirect Bilirubin 0.3 AST ALT Alkaline Phosphatase Lactate Dehydrogenase 58183 H Troponin I Total Protein Albumin Globulin Albumin/Globulin Ratio Free T4 TSH 3rd Generation HOLA (IgG-AHG) HOLA, Polyspecific 09/19/16 09/19/16 09/19/16 15:12 08:35 08:32 WBC 11.6 RBC 4.34 Hgb 11.7 L Hct 36.5 L MCV 84.1 L MCH 27 MCHC 32.1 RDW 17.3 Plt Count 114 L D MPV 11.1 Neut % (Auto) 80.6 H Lymph % (Auto) 8.6 L [place] % (Auto) 9.5 Eos % (Auto) 0.0 Baso % (Auto) 0.2 Neut # (Auto) 9.4 H Lymph # (Auto) 1.0 L [place] # (Auto) 1.1 H Eos # (Auto) 0.0 Baso # (Auto) 0.0 Total Counted 100 Immature Gran % 1.1 Nucleated RBC % 0.0 Immature Gran # 0.13 Segmented Neutrophils 84 Band Neutrophils Lymphocytes 11 L Monocytes 5 Metamyelocytes Nucleated RBCs # 0.00 Platelet Estimate Decreased Hypochromasia Slight Poikilocytosis 1+ Microcytosis Tear Drop Cells Few Ovalocytes Few [place]angley Cells Few Morphology Comment Peripheral Blood Smear Pending Peripher Smr Path Cons Pending Haptoglobin INR 1.1 PT Patient/Control Mix 11.4 Fibrinogen D-Dimer, Quantitative Circ Anticoag PTT 43.9 H Plt Func Screen - ADP Plt Func Scrn - Epineph ABG pH 7.270 L ABG pCO2 35.0 ABG pO2 231.0 H ABG HCO3 16.5 L ABG Total CO2 14.5 L ABG O2 Saturation 99.2 ABG Base Excess -10.1 L FiO2 60.00 Sodium Potassium Chloride Carbon Dioxide Anion Gap BUN Creatinine GFR Calculation BUN/Creatinine Ratio Glucose Calculated Osmolality Lactic Acid Calcium Phosphorus Magnesium Total Bilirubin Direct Bilirubin Indirect Bilirubin AST ALT Alkaline Phosphatase Lactate Dehydrogenase Troponin I Total Protein Albumin Globulin Albumin/Globulin Ratio Free T4 TSH 3rd Generation HOLA (IgG-AHG) HOLA, Polyspecific 09/19/16 09/19/16 09/19/16 06:20 04:15 04:15 WBC 12.5 H D RBC 4.39 Hgb 11.8 L Hct 38.1 L MCV 86.8 L MCH 27 MCHC 31.0 L RDW 17.6 H Plt Count 152 D MPV 11.3 Neut % (Auto) 79.5 H Lymph % (Auto) 9.5 L [place] % (Auto) 9.8 Eos % (Auto) 0.0 Baso % (Auto) 0.2 Neut # (Auto) 10.0 H Lymph # (Auto) 1.2 L [place] # (Auto) 1.2 H Eos # (Auto) 0.0 Baso # (Auto) 0.0 Total Counted 100 Immature Gran % 1.0 Nucleated RBC % 0.2 Immature Gran # 0.13 Segmented Neutrophils 76 Band Neutrophils 5 Lymphocytes 11 L Monocytes 7 Metamyelocytes 1 Nucleated RBCs # 0.03 Platelet Estimate Adequate Hypochromasia 1+ Poikilocytosis Microcytosis 1+ Tear Drop Cells Slight Ovalocytes Slight [place] Cells Morphology Comment Peripheral Blood Smear Peripher Smr Path Cons Haptoglobin INR PT Patient/Control Mix Fibrinogen D-Dimer, Quantitative Circ Anticoag PTT Plt Func Screen - ADP Plt Func Scrn - Epineph ABG pH ABG pCO2 ABG pO2 ABG HCO3 ABG Total CO2 ABG O2 Saturation ABG Base Excess FiO2 Sodium 131 L 131 L Potassium 5.1 5.5 H Chloride 96 L 98 Carbon Dioxide 19 L 17 L Anion Gap 21.1 H 21.5 H BUN 47 H 49 H Creatinine 6.40 H 6.20 H GFR Calculation 17 17 BUN/Creatinine Ratio 7.00 7.00 Glucose 267 H 227 H Calculated Osmolality 282.7 281.7 Lactic Acid Calcium 6.3 L 6.8 L Phosphorus 11.0 H Magnesium 3.2 H Total Bilirubin Direct Bilirubin Indirect Bilirubin AST ALT Alkaline Phosphatase Lactate Dehydrogenase Troponin I Total Protein Albumin 2.6 L Globulin Albumin/Globulin Ratio Free T4 TSH 3rd Generation HOLA (IgG-AHG) HOLA, Polyspecific 09/19/16 09/19/16 09/18/16 03:25 01:20 23:25 WBC RBC Hgb Hct MCV MCH MCHC RDW Plt Count MPV Neut % (Auto) Lymph % (Auto) [place] % (Auto) Eos % (Auto) Baso % (Auto) Neut # (Auto) Lymph # (Auto) [place] # (Auto) Eos # (Auto) Baso # (Auto) Total Counted Immature Gran % Nucleated RBC % Immature Gran # Segmented Neutrophils Band Neutrophils Lymphocytes Monocytes Metamyelocytes Nucleated RBCs # Platelet Estimate Hypochromasia Poikilocytosis Microcytosis Tear Drop Cells Ovalocytes [place]angley Cells Morphology Comment Peripheral Blood Smear Peripher Smr Path Cons Haptoglobin INR 1.0 PT Patient/Control Mix 10.9 Fibrinogen D-Dimer, Quantitative Circ Anticoag PTT 38.7 Plt Func Screen - ADP Plt Func Scrn - Epineph ABG pH 7.199 L* ABG pCO2 34.6 L ABG pO2 243.0 H ABG HCO3 13.9 L ABG Total CO2 12.3 L ABG O2 Saturation 98.8 ABG Base Excess -13.9 L FiO2 60.00 Sodium Potassium Chloride Carbon Dioxide Anion Gap BUN Creatinine GFR Calculation BUN/Creatinine Ratio Glucose Calculated Osmolality Lactic Acid Calcium Phosphorus Magnesium Total Bilirubin Direct Bilirubin Indirect Bilirubin AST ALT Alkaline Phosphatase Lactate Dehydrogenase Troponin I 1.720 H D Total Protein Albumin Globulin Albumin/Globulin Ratio Free T4 TSH 3rd Generation HOLA (IgG-AHG) HOLA, Polyspecific 09/18/16 09/18/16 09/18/16 23:25 23:25 23:25 WBC RBC Hgb Hct MCV MCH MCHC RDW Plt Count MPV Neut % (Auto) Lymph % (Auto) [place] % (Auto) Eos % (Auto) Baso % (Auto) Neut # (Auto) Lymph # (Auto) [place] # (Auto) Eos # (Auto) Baso # (Auto) Total Counted Immature Gran % Nucleated RBC % Immature Gran # Segmented Neutrophils Band Neutrophils Lymphocytes Monocytes Metamyelocytes Nucleated RBCs # Platelet Estimate Hypochromasia Poikilocytosis Microcytosis Tear Drop Cells Ovalocytes Langley Cells Morphology Comment Peripheral Blood Smear Peripher Smr Path Cons Haptoglobin INR PT Patient/Control Mix Fibrinogen D-Dimer, Quantitative 8.9 Circ Anticoag PTT Plt Func Screen - ADP Plt Func Scrn - Epineph ABG pH ABG pCO2 ABG pO2 ABG HCO3 ABG Total CO2 ABG O2 Saturation ABG Base Excess FiO2 Sodium Potassium Chloride Carbon Dioxide Anion Gap BUN Creatinine GFR Calculation BUN/Creatinine Ratio Glucose Calculated Osmolality Lactic Acid Calcium Phosphorus Magnesium 3.7 H Total Bilirubin Direct Bilirubin Indirect Bilirubin AST ALT Alkaline Phosphatase Lactate Dehydrogenase Troponin I Total Protein Albumin Globulin Albumin/Globulin Ratio Free T4 0.87 TSH 3rd Generation 2.990 HOLA (IgG-AHG) HOLA, Polyspecific 09/18/16 09/18/16 09/18/16 23:25 23:20 11:25 WBC 19.6 H D RBC 4.03 Hgb 10.9 L Hct 36.5 L MCV 90.6 MCH 27 MCHC 29.9 L RDW 17.7 H Plt Count 124 L MPV 11.5 Neut % (Auto) 67.4 Lymph % (Auto) 20.7 L [place] % (Auto) 10.0 Eos % (Auto) 0.2 Baso % (Auto) 0.3 Neut # (Auto) 13.2 H Lymph # (Auto) 4.1 H [place] # (Auto) 2.0 H Eos # (Auto) 0.0 Baso # (Auto) 0.1 Total Counted 100 Immature Gran % 1.4 Nucleated RBC % 0.3 Immature Gran # 0.28 Segmented Neutrophils 63 Band Neutrophils 4 Lymphocytes 23 Monocytes 10 Metamyelocytes Nucleated RBCs # 0.06 Platelet Estimate Adequate Hypochromasia Poikilocytosis Microcytosis Tear Drop Cells Ovalocytes [place]angley Cells Morphology Comment Peripheral Blood Smear Peripher Smr Path Cons Haptoglobin INR PT Patient/Control Mix Fibrinogen D-Dimer, Quantitative Circ Anticoag PTT Plt Func Screen - ADP Plt Func Scrn - Epineph ABG pH 6.999 L* ABG pCO2 30.3 L ABG pO2 317.0 H ABG HCO3 8.2 L ABG Total CO2 7.2 L ABG O2 Saturation 98.0 ABG Base Excess -23.5 L FiO2 Sodium 136 Potassium 4.4 Chloride 100 Carbon Dioxide 12 L Anion Gap 28.4 H BUN 40 H Creatinine 5.60 H GFR Calculation 20 BUN/Creatinine Ratio 7.00 Glucose 143 H Calculated Osmolality 283.0 Lactic Acid Calcium 10.1 Phosphorus Magnesium Total Bilirubin 0.60 Direct Bilirubin Indirect Bilirubin AST 1674 H ALT 303 H Alkaline Phosphatase 43 L Lactate Dehydrogenase Troponin I Total Protein 7.2 Albumin 2.9 L Globulin 4.3 H Albumin/Globulin Ratio 0.6 L Free T4 TSH 3rd Generation HOLA (IgG-AHG) HOLA, Polyspecific Preliminary micro results at discharge 09/18/16 11:55 Stool Culture - Preliminary Stool No enteric pathogens at 24 hrs 09/18/16 Unknown Urine Culture - Preliminary Urine,Voided No Growth at 12 hours. DS: Provider Date of admission: 09/17/16 13:37 Primary care physician: . No PCP Attending physician on admission: Susanne Cormier MD Consults: 09/17/16 14:46 Consult to Pharmacy [CONS] Routine Reason for Pharmacy Consult: Adjust Meds Renal Funct 09/18/16 09:13 Consult to Physician [CONS] Routine Comment: AFib, elevated troponin Consulting Provider: Cardiology - [facility] Consulting Provider Notified: No When should Consulting Provider be notified: Now Consult to Specialist Group: Cardiology When should Consulting Provider be notified: Now Person Notified: ERIN Date Notified: 09/18/16 Time Notified: 09:50 09/19/16 04:41 Consult to Physician [CONS] Routine Comment: [place] [facility] When should Consulting Provider be notified: In am 09/19/16 07:38 Consult to Physician [CONS] Routine Comment: Acute renal failure Consulting Provider: Consult to Specialist Group: Nephrology When should Consulting Provider be notified: Now Discharging clinician: Mann Nicole MD Expected date of discharge: 09/19/16
[2016-09-19 21:46] LABS: Alanine Aminotransferase 585 U/L (16-61); Albumin 1.9 G/DL (3.4-5.0); Alkaline Phosphatase 44 U/L (45-117); Aspartate Amino Transferase 2562 U/L (0-37); Blood Urea Nitrogen 66 MG/DL (7-18); Glucose 388 MG/DL (74-106); Osmolality,Calculated 307.8 MOS/KG (273-304); Sodium 137 MMOL/L (136-145); Total Protein 5.4 G/DL (6.4-8.3)
[2016-09-19 21:48] LABS: Calcium < 5.0 MG/DL (8.5-10.1); Potassium 7.2 MMOL/L (3.5-5.1)
[2016-09-19 22:18] VITALS: BP 82/49
== END 2016-09-19 21:00 | disposition expired | DRG 871 ==
LOC: EDBD → EDUNIT# → N.ED 11:43 → N.EDINP 13:37 → SUATTDRO 13:37 → N.TELEN 16:05 → N.CC 09-18 23:17
PROVIDERS: ADMIT Internal Medicine Cardiovascular Disease; ATTEND Internal Medicine